=== PATIENT | female | born 1995 | race Caucasian/White ===

== ENCOUNTER 2017-01-05 16:16 | Emergency (ER) | payer MEDICAID ==
[2017-01-05 16:28] VITALS: BP 132/59
[2017-01-05] MEDS ORDERED: methylPREDNISolone Sodium Succinate 125 MG/2 ML SDV IM ONE (17:06)
--- NOTE | 2017-01-05 17:12 | EDM.PDOC ---
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 She did feel anxious and was not sure if it was the reaction or if she was just panicky. She did not develop hives. Onset: Today Duration: Minutes: Location: Reports: Chest Associated Symptoms: Reports: Shortness of Breath, Other (pt was feeling sob amd tight in the throat. ) - Related Data Allergies Allergy/AdvReac Type Severity Reaction Status Date / Time amoxicillin Allergy Hives Verified 08/18/16 19:21 Home Meds: Home Meds Acetaminophen [Tylenol Extra Strength] 500 mg PO ASDIRECTED 08/18/16 [History] Albuterol [Ventolin HFA] 2 puff INH ASDIRECTED 08/18/16 [History] Doxylamine Succinate [Unisom] 12.5 mg PO BEDTIME 08/18/16 [History] Montelukast [Singulair] 10 mg PO BEDTIME 08/18/16 [History] Vits #93/Iron Fum/FA [ Formula Tablet] 1 tab PO DAILY 08/18/16 [History] Past Medical History HEENT History: Reports: Allergic Rhinitis, Impaired Vision 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: Reports: Asthma Musculoskeletal History: Reports: Fracture Psychiatric History: Reports: Anxiety, Panic Attack Hematologic History: Reports: Other (See Below) Other Hematologic History: low WBC with onknown cause - Infectious Disease History Infectious Disease History: Reports: Chicken Pox - Past Surgical History HEENT Surgical History: Reports: None Social & Family History - Tobacco Use Smoking Status *Q: Never Smoker Years of Tobacco use: 1 Packs/Tins Daily: 1 Used Tobacco, but Quit: Yes Month Tobacco Last Used: Febuary - Caffeine Use Caffeine Use: Reports: None - Recreational Drug Use Recreational Drug Use: No Recreational Drug Type: Reports: Marijuana/Hashish ED ROS GENERAL - Review of Systems Review Of Systems: See Below Constitutional: Reports: No Symptoms HEENT: Reports: No Symptoms Respiratory: Reports: Shortness of Breath Cardiovascular: Reports: No Symptoms Endocrine: Reports: No Symptoms GI/Abdominal: Reports: No Symptoms : Reports: No Symptoms ED EXAM, ANIMAL BITE - Physical Exam Exam: See Below Text/Narrative:: pt does appear anxious. She is 6.5 monthes preg. She has no hives. She as a small bite with no reaction around it. Exam Limited By: No Limitations General Appearance: Alert, Anxious Ears: Normal TMs Nose: Normal Inspection Throat/Mouth: Normal Inspection, Other ( no swelling ) Head: Atraumatic Neck: Normal Inspection Respiratory/Chest: Other ( no wheezing present. ) Cardiovascular: Regular Rate, Rhythm GI/Abdominal: Soft, Non-Tender (Female) Exam: Deferred Rectal (Female) Exam: Deferred Back Exam: Normal Inspection Extremities: Normal Inspection Neurological: Alert, Oriented, Normal Cognition Psychiatric: Anxious Course - Vital Signs Last Recorded V/S: Last Vital Signs Temp 36.6 C 01/05/17 16:25 Pulse 94 01/05/17 16:25 Resp 20 01/05/17 16:25 BP 132/59 L 01/05/17 16:25 Pulse Ox 98 01/05/17 16:25 - Orders/Labs/Meds Orders: Active Orders 24 hr Category Date Time Status methylPREDNISolone Sod Succ [Solu-MEDROL] Med 01/05/17 17:06 Once 125 mg IM ONETIME ONE - Re-Assessments/Exams Free Text/Narrative Re-Assessment/Exam: 01/05/17 17:12 pt was not given benadryl because of the preg. Departure - Departure Time of Disposition: 17:13 Disposition: Home, Self-Care 01 Condition: fair Clinical Impression: Bee sting reaction - Discharge Information Forms: ED Department Discharge Care Plan Goals: use tylenol for any discomfort, rtc if problems. - My Orders Last 24 Hours: My Active Orders 01/05/17 17:06 methylPREDNISolone Sod Succ [Solu-MEDROL] 125 mg IM ONETIME ONE - Assessment/Plan Last 24 Hours: My Active Orders 01/05/17 17:06 methylPREDNISolone Sod Succ [Solu-MEDROL] 125 mg IM ONETIME ONE
== END 2017-01-05 17:40 | disposition home or self-care (01) ==
LOC: JP.ED 16:16
DX: T63.441A Toxic effect of venom of bees, accidental (unintentional), initial encounter (principal); Z88.1 Allergy status to other antibiotic agents; Z79.899 Other long term (current) drug therapy; J45.909 Unspecified asthma, uncomplicated
CPT/HCPCS: 96372; 99285; J2930

== ENCOUNTER 2017-04-13 18:56 | Inpatient (IN) | payer MEDICAID ==
[~2017-04-13 18:56] MED LIST: Lidocaine 1% 50 ML MDV INJECT ONE
[2017-04-13] MEDS ORDERED: Sodium Chloride 0.9% 10 ML Syringe FLUSH PRN ×2 (19:30→19:48)
[2017-04-13] MEDS ORDERED: Acetaminophen 325 MG Tab PO PRN (19:48)
[2017-04-13] MEDS ORDERED: Calcium Carbonate 500 MG Tab.Chew PO PRN (19:48)
[2017-04-13] MEDS ORDERED: Ondansetron 4 MG/2 ML SDV IV PRN (19:48)
[2017-04-13] MEDS ORDERED: Misoprostol 50 MCG (1/2 of 100 MCG) Tab VAG ONE (19:52)
[2017-04-13] MEDS ORDERED: Zolpidem 5 MG Tab PO ONE (19:53)
[2017-04-13] MEDS ORDERED: Lactated Ringers 1,000 ML IV SCH (20:00)
--- NOTE | 2017-04-13 20:30 | PCM.LDHP ---
L&D History of Present Illness - General Date of Service: 04/13/17 Admit Problem/Dx: Patient Status Order with Admit Dx/Problem 04/13/17 19:48 Patient Status [ADT] Routine Admission Diagnosis/Problem Admission Diagnosis/Problem - Related Data Allergies/Adverse Reactions: Allergies Allergy/AdvReac Type Severity Reaction Status Date / Time amoxicillin Allergy Hives Verified 08/18/16 19:21 Home Medications: Home Meds Acetaminophen [Tylenol Extra Strength] 500 mg PO ASDIRECTED 08/18/16 [History] Albuterol [Ventolin HFA] 2 puff INH ASDIRECTED 08/18/16 [History] Doxylamine Succinate [Unisom] 12.5 mg PO BEDTIME 08/18/16 [History] Montelukast [Singulair] 10 mg PO BEDTIME 08/18/16 [History] Vits #93/Iron Fum/FA [ Formula Tablet] 1 tab PO DAILY 08/18/16 [History] Past Medical History HEENT History: Reports: Allergic Rhinitis 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: Reports: 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 Other OB/BYN History: BOO-04/08/2017 Musculoskeletal History: Reports: Fracture Other Musculoskeletal History: fractured shoulder x's 3 Psychiatric History: Reports: Anxiety, Panic Attack Hematologic History: Reports: Other (See Below) Other Hematologic History: low WBC with unknown cause Dermatologic History: Reports: Other (See Below) Other Dermatologic History: PUPP - Infectious Disease History Infectious Disease History: Reports: Chicken Pox - Past Surgical History HEENT Surgical History: Reports: None Respiratory Surgical History: Reports: None Musculoskeletal Surgical History: Reports: None Social & Family History - Family History Family Medical History: Noncontributory - Tobacco Use Smoking Status *Q: Never Smoker Years of Tobacco use: 1 Packs/Tins Daily: 1 Used Tobacco, but Quit: Yes Month Tobacco Last Used: Febuary Second Hand Smoke Exposure: Yes - Caffeine Use Caffeine Use: Reports: Soda Other Caffeine Use: 1 cup daily - Recreational Drug Use Recreational Drug Use: No Recreational Drug Type: Reports: Marijuana/Hashish H&P Review of Systems - Review of Systems: Review Of Systems: See Below General: Reports: No Symptoms HEENT: Reports: No Symptoms Pulmonary: Reports: No Symptoms Cardiovascular: Reports: No Symptoms Gastrointestinal: Reports: No Symptoms Genitourinary: Reports: No Symptoms Musculoskeletal: Reports: No Symptoms Skin: Reports: Rash, Other (PUPP) Psychiatric: Reports: No Symptoms Neurological: Reports: No Symptoms Hematologic/Lymphatic: Reports: No Symptoms Immunologic: Reports: No Symptoms L&D Exam - Exam Exam: See Below - Vital Signs Weight: 73.936 kg - OB Specific Movement: Active Heart Tones: Present Heart Rate (FHR) Variability: Moderate (6-25 bmp) Presentation: Vertex - Chaves Score Chaves Score Cervix Position: Posterior Chaves Score Consistency: Soft Chaves Score Effacement: 51-70% Chaves Score Dilation: Closed Chaves Score Infant's Station: -1 ,0 Chaves Score Total: 6 - Exam General: Alert, Oriented HEENT: PERRLA, Conjunctiva Clear, EACs Clear, EOMI, Hearing Intact, Mucosa Moist & Ericson, Nares Patent, Normal Nasal Septum, Posterior Pharynx Clear, TMs Clear Neck: Supple, Trachea Midline Lungs: Clear to Auscultation, Normal Respiratory Effort Cardiovascular: Regular Rate, Regular Rhythm GI/Abdominal Exam: Normal Bowel Sounds, Soft, Non-Tender, No Organomegaly, No Distention, No Abnormal Bruit, No Mass, Pelvis Stable Rectal Exam: Normal Exam, Normal Rectal Tone Genitourinary: Normal external exam, Normal bimanual exam, Normal speculum exam Back Exam: Normal Inspection, Full Range of Motion Extremities: Normal Inspection, Normal Range of Motion, Non-Tender, No Pedal Edema, Normal Capillary Refill Skin: Warm, Dry, Intact, Rash, Other (PUPP on most of abdomen and body) Neurological: Cranial Nerves Intact, Reflexes Equal Bilateral Psychiatric: Alert, Normal Affect, Normal Mood - Patient Data Lab Results Last 24 hrs: Laboratory Results - last 24 hr 04/13/17 04/13/17 04/13/17 Range/Units 19:42 19:42 19:42 WBC 11.6 H (4.5-11.0) K/uL RBC 4.71 (3.30-5.50) M/uL Hgb 13.9 (12.0-15.0) g/dL Hct 41.2 (36.0-48.0) % MCV 88 (80-98) fL MCH 30 (27-31) pg MCHC 34 (32-36) % Plt Count 227 (150-400) K/uL Neut % (Auto) 66 (36-66) % Lymph % (Auto) 22 L (24-44) % Navarro % (Auto) 8 H (2-6) % Eos % (Auto) 3 (2-4) % Baso % (Auto) 1 (0-1) % Sodium 138 L (140-148) mmol/L Potassium 3.6 (3.6-5.2) mmol/L Chloride 104 (100-108) mmol/L Carbon Dioxide 24 (21-32) mmol/L Anion Gap 13.6 (5.0-14.0) mmol/L BUN 10 (7-18) mg/dL Creatinine 0.7 (0.6-1.0) mg/dL Est Cr Clr Drug Dosing 100.51 mL/min Estimated GFR (MDRD) > 60 (>60) Glucose 83 (74-106) mg/dL Uric Acid 5.2 (2.6-6.2) mg/dL Calcium 8.6 (8.5-10.1) mg/dL Total Bilirubin 0.2 (0.2-1.0) mg/dL AST 19 (15-37) U/L ALT 20 (12-78) U/L Alkaline Phosphatase 170 H (46-116) U/L Total Protein 6.9 (6.4-8.2) g/dL Albumin 2.7 L (3.4-5.0) g/dL Globulin 4.2 H (2.3-3.5) g/dL Albumin/Globulin Ratio 0.6 L (1.2-2.2) Urine Color Urine Appearance Urine pH (4.5-8.0) Ur Specific Ponce (1.008-1.030) Urine Protein (NEGATIVE) mg/dL Urine Glucose (UA) (NEGATIVE) mg/dL Urine Ketones (NEGATIVE) mg/dL Urine Occult Blood (NEGATIVE) Urine Nitrite (NEGATIVE) Urine Bilirubin (NEGATIVE) Urine Urobilinogen (NORMAL) mg/dL Ur Leukocyte Esterase (NEGATIVE) Urine RBC (0-5) Urine WBC (0-5) Ur Epithelial Cells Amorphous Sediment Urine Bacteria Urine Mucus Urine Opiates Screen (NEGATIVE) Ur Oxycodone Screen (NEGATIVE) Urine Methadone Screen (NEGATIVE) Ur Propoxyphene Screen (NEGATIVE) Ur Barbiturates Screen (NEGATIVE) Ur Tricyclics Screen (NEGATIVE) Ur Phencyclidine Scrn (NEGATIVE) Ur Amphetamine Screen (NEGATIVE) U Methamphetamines Scrn (NEGATIVE) Urine MDMA Screen (NEGATIVE) U Benzodiazepines Scrn (NEGATIVE) U Cocaine Metab Screen (NEGATIVE) U Marijuana (THC) Screen (NEGATIVE) 04/13/17 04/13/17 Range/Units 19:54 19:54 WBC (4.5-11.0) K/uL RBC (3.30-5.50) M/uL Hgb (12.0-15.0) g/dL Hct (36.0-48.0) % MCV (80-98) fL MCH (27-31) pg MCHC (32-36) % Plt Count (150-400) K/uL Neut % (Auto) (36-66) % Lymph % (Auto) (24-44) % Navarro % (Auto) (2-6) % Eos % (Auto) (2-4) % Baso % (Auto) (0-1) % Sodium (140-148) mmol/L Potassium (3.6-5.2) mmol/L Chloride (100-108) mmol/L Carbon Dioxide (21-32) mmol/L Anion Gap (5.0-14.0) mmol/L BUN (7-18) mg/dL Creatinine (0.6-1.0) mg/dL Est Cr Clr Drug Dosing mL/min Estimated GFR (MDRD) (>60) Glucose (74-106) mg/dL Uric Acid (2.6-6.2) mg/dL Calcium (8.5-10.1) mg/dL Total Bilirubin (0.2-1.0) mg/dL AST (15-37) U/L ALT (12-78) U/L Alkaline Phosphatase (46-116) U/L Total Protein (6.4-8.2) g/dL Albumin (3.4-5.0) g/dL Globulin (2.3-3.5) g/dL Albumin/Globulin Ratio (1.2-2.2) Urine Color Yellow Urine Appearance Clear Urine pH 7.0 (4.5-8.0) Ur Specific Ponce 1.010 (1.008-1.030) Urine Protein Negative (NEGATIVE) mg/dL Urine Glucose (UA) Normal (NEGATIVE) mg/dL Urine Ketones Negative (NEGATIVE) mg/dL Urine Occult Blood Negative (NEGATIVE) Urine Nitrite Negative (NEGATIVE) Urine Bilirubin Negative (NEGATIVE) Urine Urobilinogen Normal (NORMAL) mg/dL Ur Leukocyte Esterase Negative (NEGATIVE) Urine RBC 0-5 (0-5) Urine WBC 5-10 H (0-5) Ur Epithelial Cells Few Amorphous Sediment Not seen Urine Bacteria Moderate Urine Mucus Not seen Urine Opiates Screen Negative (NEGATIVE) Ur Oxycodone Screen Negative (NEGATIVE) Urine Methadone Screen Negative (NEGATIVE) Ur Propoxyphene Screen Negative (NEGATIVE) Ur Barbiturates Screen Negative (NEGATIVE) Ur Tricyclics Screen Negative (NEGATIVE) Ur Phencyclidine Scrn Negative (NEGATIVE) Ur Amphetamine Screen Negative (NEGATIVE) U Methamphetamines Scrn Negative (NEGATIVE) Urine MDMA Screen Negative (NEGATIVE) U Benzodiazepines Scrn Negative (NEGATIVE) U Cocaine Metab Screen Negative (NEGATIVE) U Marijuana (THC) Screen Negative (NEGATIVE) Result Diagrams: 04/13/17 19:42 04/13/17 19:42 - Problem List (1) SNOMED Code(s): 76933374 ICD Code: Z34.90 - ENCNTR FOR SUPRVSN OF NORMAL , UNSP, UNSP TRIMESTER Status: Acute Current Visit: Yes Qualifiers: Weeks of gestation: 40 weeks Qualified Code(s): Z3A.40 - 40 weeks gestation of (2) Post-dates SNOMED Code(s): 80912091 ICD Code: O48.0 - POST-TERM Status: Acute Current Visit: Yes Qualifiers: Post-term type: 40-42 weeks gestation Qualified Code(s): O48.0 - Post-term (3) PUPP (pruritic urticarial papules and plaques of ) SNOMED Code(s): 43421466 ICD Code: O26.86 - PRURITIC URTICARIAL PAPULES AND PLAQUES OF ( PUPPP) Status: Acute Current Visit: Yes Problem List Initiated/Reviewed/Updated: Yes Orders Last 24hrs: Active Orders 24 hr Category Date Time Status Patient Status [ADT] Routine ADT 04/13/17 19:48 Ordered Ambulate [RC] PER UNIT ROUTINE Care 04/13/17 19:48 Ordered Communication Order [RC] ASDIRECTED Care 04/13/17 19:48 Ordered Heart Tones [RC] PER UNIT ROUTINE Care 04/13/17 19:48 Ordered Notify Provider Vital Signs [RC] PRN Care 04/13/17 19:48 Ordered Notify Provider [RC] PRN Care 04/13/17 19:48 Ordered Up ad Kenneth [RC] ASDIRECTED Care 04/13/17 19:48 Ordered VTE/DVT Education [RC] Click to Edit Care 04/13/17 19:50 Ordered Vital Signs [RC] PER UNIT ROUTINE Care 04/13/17 19:48 Ordered Regular Diet [DIET] Diet 04/13/17 Dinner Ordered Acetaminophen [Tylenol] Med 04/13/17 19:48 Ordered 650 mg PO Q4H PRN Calcium Carbonate [Tums] Med 04/13/17 19:48 Ordered 1,000 mg PO Q2HR PRN Lactated Ringers [Ringers, Lactated] 1,000 ml Med 04/13/17 20:00 Ordered IV ASDIRECTED Ondansetron [Zofran] Med 04/13/17 19:48 Ordered 4 mg IV Q4H PRN Sodium Chloride 0.9% [Saline Flush] Med 04/13/17 19:30 Active 10 ml FLUSH ASDIRECTED PRN Sodium Chloride 0.9% [Saline Flush] Med 04/13/17 19:48 Ordered 10 ml FLUSH ASDIRECTED PRN fentaNYL [Sublimaze] Med 04/13/17 19:48 Ordered 100 mcg IVPUSH Q1H PRN DVT/VTE Prophylaxis Reflex [OM.PC] Routine Oth 04/13/17 19:48 Ordered Saline Lock Insert [OM.PC] Routine Oth 04/13/17 19:30 Ordered Saline Lock Insert [OM.PC] Routine Oth 04/13/17 19:48 Ordered Resuscitation Status Routine Resus Stat 04/13/17 19:48 Ordered Medication Orders Acetaminophen (Tylenol) 650 mg PO Q4H PRN PRN Reason: Pain (Mild 1-3) and fever Calcium Carbonate/Glycine (Tums) 1,000 mg PO Q2H PRN PRN Reason: Indigestion Fentanyl (Sublimaze) 100 mcg IVPUSH Q1H PRN PRN Reason: Pain (moderate 4-6) Lactated Ringer's (Ringers, Lactated) 1,000 mls @ 125 mls/hr IV ASDIRECTED DIANNE Ondansetron HCl (Zofran) 4 mg IV Q4H PRN PRN Reason: Nausea/Vomiting Sodium Chloride (Saline Flush) 10 ml FLUSH ASDIRECTED PRN PRN Reason: Keep Vein Open Sodium Chloride (Saline Flush) 10 ml FLUSH ASDIRECTED PRN PRN Reason: Keep Vein Open Assessment/Plan Comment:: 04/13/2017 22 yo here at 40 5/7 gestational weeks for an elective induction of labor SVE-0/75/-1--2 Bishops Score-6 Cytotec 50mcg placed FHTs category one PUPP rash Currently not johnathon on her own Plan- Monitor for active labor Monitor FHTs for cytotec protocol then can doppler intermittently when patient is awake or with vital signs Up ad kenneth Ambien 10mg for sleep Can give benadryl 25-50mg for itching if needed Pain Management per patient request Can give IV bolus of LR if needed Vital Signs per protocol of cytotec Can eat regular diet Have patient up around 0600 for shower and breakfast before initiation of pitocin or another dose of cytotec to be placed Anticipate and plan for a vaginal delivery
[2017-04-13] MEDS ORDERED: Albuterol 8 GM Inhaler INH PRN (20:35)
[2017-04-13] MEDS ORDERED: Zolpidem 5 MG Tab ONE (22:14)
[2017-04-13] MEDS: diphenhydrAMINE 25 MG Cap PO PRN (23:50)
[2017-04-14] MEDS: fentaNYL 100 MCG/2 ML SDV IVPUSH PRN ×2 (01:02→02:32)
[2017-04-14] MEDS ORDERED: Naloxone 0.4 MG/ML SDV ONE (01:54)
[2017-04-14] MEDS ORDERED: Mineral Oil 10 ML Bottle ONE (01:54)
[2017-04-14] MEDS ORDERED: Lidocaine 1% 50 ML MDV ONE (01:54)
[2017-04-14] MEDS ORDERED: Oxytocin 10 Units/1 ML SDV ONE (01:54)
[2017-04-14] MEDS ORDERED: Lanolin 100% Cream 40 GM Tube TOP PRN (03:32)
[2017-04-14] MEDS ORDERED: Ibuprofen 200 MG Tab, 24 Tab Bulk Bottle PO PRN (03:32)
[2017-04-14] MEDS ORDERED: Acetaminophen 325 MG Tab, 50 Tab Bulk Bottle PO PRN (03:32)
[2017-04-14] MEDS ORDERED: Benzocaine 20% Top Spray 56 GM Bottle TOP PRN (03:32)
[2017-04-14] MEDS ORDERED: Ibuprofen 600 MG Tab PO PRN (03:32)
[2017-04-14] MEDS ORDERED: Witch Hazel Medicated Pads 100/Jar TOP PRN (03:32)
--- NOTE | 2017-04-14 03:51 | PCM.DEL ---
L & D Note - General Info Date of Service: 04/14/17 Mother's Due Date: 04/08/17 - Delivery Note Cervical Ripening Method: Misoprostil Delivery Outcome: Livebirth Delivery Method: Spontaneous Vaginal Delivery Infant Delivery Mode: Spontaneous Presentation: Left Occiput Transverse (LOT) Nuchal Cord: Present (tight and clamped and cut on perineum) Anesthesia Type: None Anesthetic: Lidocaine (Xylocaine) 1% Plain Local Anesthetic Volume: Other (12) Amniotic Fluid Description: Clear Laceration: Labial (deep labial minor and majora), Other (small perineal abrasion) Suture type: Chromic Suture size: 3-0 Placenta: Intact, Spontaneous Cord: 3 Vessels Estimated Blood Loss: 500 Resuscitation Needed: No : Bulb Syringe, Stimulated, Warmed, [place] Used, Warmer Used Score 1 min: 8 Score 5 min: 9 Score 10 min: 9 Post Delivery Events: Shoulder Dystocia Second Stage Interventions: Reports: Encouragement Given, Pushing Effectively, Pushing, McRobert's Position, Pushing, Stirrups/Leg Supports, Other (see below) (suprapubic used) Delivery Comments (Free Text/Narrative):: 04/14/2017 22 yo G1 now P1 at 40 6/7 gestation weeks delivered a viable male on 03/2017 at 0213 in LOT position, after a precipitous labor and delivery after one dose of vaginal cytotec earlier in the evening. Moderate shoulder dystocia that was relieved with suprapubic pressure and McRobert maneuver. Tight nuchal cord times one also had to be clamped and cut on the perineum. APGARS-8/9/9, Weight- 7lbs 13.5oz, Length-21 inches- infant was brought to [facility] for initial assessment and evaluation, bulb suction, stimulated, dried, and warmed before pinking in color. Placenta spontaneous, three vessel cord Perineum had small abrasion repaired in usual fashion, large deep right labial minora and majora laceration repaired in usual fashion, no lacerations noted of cervix, vagina, or rectum on examination. EBL-500ml now skin to skin with mother and both stable at this time. - General Info Date of Service: 04/14/17 - Review of Systems General: Reports: No Symptoms HEENT: Reports: No Symptoms Pulmonary: Reports: No Symptoms Cardiovascular: Reports: No Symptoms Gastrointestinal: Reports: No Symptoms Genitourinary: Reports: No Symptoms Musculoskeletal: Reports: No Symptoms Skin: Reports: Rash (PUPP) Neurological: Reports: No Symptoms Psychiatric: Reports: No Symptoms - Patient Data Vitals - Most Recent: Last Vital Signs Temp 36.6 C 04/13/17 21:12 Pulse 78 04/13/17 22:32 Resp 18 04/13/17 22:32 BP 124/76 04/13/17 22:32 Pulse Ox Weight - Most Recent: 73.936 kg Lab Results Last 24 Hours: Laboratory Results - last 24 hr 04/13/17 04/13/17 04/13/17 Range/Units 19:42 19:42 19:42 WBC 11.6 H (4.5-11.0) K/uL RBC 4.71 (3.30-5.50) M/uL Hgb 13.9 (12.0-15.0) g/dL Hct 41.2 (36.0-48.0) % MCV 88 (80-98) fL MCH 30 (27-31) pg MCHC 34 (32-36) % Plt Count 227 (150-400) K/uL Neut % (Auto) 66 (36-66) % Lymph % (Auto) 22 L (24-44) % [place] % (Auto) 8 H (2-6) % Eos % (Auto) 3 (2-4) % Baso % (Auto) 1 (0-1) % Sodium 138 L (140-148) mmol/L Potassium 3.6 (3.6-5.2) mmol/L Chloride 104 (100-108) mmol/L Carbon Dioxide 24 (21-32) mmol/L Anion Gap 13.6 (5.0-14.0) mmol/L BUN 10 (7-18) mg/dL Creatinine 0.7 (0.6-1.0) mg/dL Est Cr Clr Drug Dosing 100.51 mL/min Estimated GFR (MDRD) > 60 (>60) Glucose 83 (74-106) mg/dL Uric Acid 5.2 (2.6-6.2) mg/dL Calcium 8.6 (8.5-10.1) mg/dL Total Bilirubin 0.2 (0.2-1.0) mg/dL AST 19 (15-37) U/L ALT 20 (12-78) U/L Alkaline Phosphatase 170 H (46-116) U/L Total Protein 6.9 (6.4-8.2) g/dL Albumin 2.7 L (3.4-5.0) g/dL Globulin 4.2 H (2.3-3.5) g/dL Albumin/Globulin Ratio 0.6 L (1.2-2.2) Urine Color Urine Appearance Urine pH (4.5-8.0) Ur Specific Stokes (1.008-1.030) Urine Protein (NEGATIVE) mg/dL Urine Glucose (UA) (NEGATIVE) mg/dL Urine Ketones (NEGATIVE) mg/dL Urine Occult Blood (NEGATIVE) Urine Nitrite (NEGATIVE) Urine Bilirubin (NEGATIVE) Urine Urobilinogen (NORMAL) mg/dL Ur Leukocyte Esterase (NEGATIVE) Urine RBC (0-5) Urine WBC (0-5) Ur Epithelial Cells Amorphous Sediment Urine Bacteria Urine Mucus Urine Opiates Screen (NEGATIVE) Ur Oxycodone Screen (NEGATIVE) Urine Methadone Screen (NEGATIVE) Ur Propoxyphene Screen (NEGATIVE) Ur Barbiturates Screen (NEGATIVE) Ur Tricyclics Screen (NEGATIVE) Ur Phencyclidine Scrn (NEGATIVE) Ur Amphetamine Screen (NEGATIVE) U Methamphetamines Scrn (NEGATIVE) Urine MDMA Screen (NEGATIVE) U Benzodiazepines Scrn (NEGATIVE) U Cocaine Metab Screen (NEGATIVE) U Marijuana (THC) Screen (NEGATIVE) 04/13/17 04/13/17 Range/Units 19:54 19:54 WBC (4.5-11.0) K/uL RBC (3.30-5.50) M/uL Hgb (12.0-15.0) g/dL Hct (36.0-48.0) % MCV (80-98) fL MCH (27-31) pg MCHC (32-36) % Plt Count (150-400) K/uL Neut % (Auto) (36-66) % Lymph % (Auto) (24-44) % [place] % (Auto) (2-6) % Eos % (Auto) (2-4) % Baso % (Auto) (0-1) % Sodium (140-148) mmol/L Potassium (3.6-5.2) mmol/L Chloride (100-108) mmol/L Carbon Dioxide (21-32) mmol/L Anion Gap (5.0-14.0) mmol/L BUN (7-18) mg/dL Creatinine (0.6-1.0) mg/dL Est Cr Clr Drug Dosing mL/min Estimated GFR (MDRD) (>60) Glucose (74-106) mg/dL Uric Acid (2.6-6.2) mg/dL Calcium (8.5-10.1) mg/dL Total Bilirubin (0.2-1.0) mg/dL AST (15-37) U/L ALT (12-78) U/L Alkaline Phosphatase (46-116) U/L Total Protein (6.4-8.2) g/dL Albumin (3.4-5.0) g/dL Globulin (2.3-3.5) g/dL Albumin/Globulin Ratio (1.2-2.2) Urine Color Yellow Urine Appearance Clear Urine pH 7.0 (4.5-8.0) Ur Specific Stokes 1.010 (1.008-1.030) Urine Protein Negative (NEGATIVE) mg/dL Urine Glucose (UA) Normal (NEGATIVE) mg/dL Urine Ketones Negative (NEGATIVE) mg/dL Urine Occult Blood Negative (NEGATIVE) Urine Nitrite Negative (NEGATIVE) Urine Bilirubin Negative (NEGATIVE) Urine Urobilinogen Normal (NORMAL) mg/dL Ur Leukocyte Esterase Negative (NEGATIVE) Urine RBC 0-5 (0-5) Urine WBC 5-10 H (0-5) Ur Epithelial Cells Few Amorphous Sediment Not seen Urine Bacteria Moderate Urine Mucus Not seen Urine Opiates Screen Negative (NEGATIVE) Ur Oxycodone Screen Negative (NEGATIVE) Urine Methadone Screen Negative (NEGATIVE) Ur Propoxyphene Screen Negative (NEGATIVE) Ur Barbiturates Screen Negative (NEGATIVE) Ur Tricyclics Screen Negative (NEGATIVE) Ur Phencyclidine Scrn Negative (NEGATIVE) Ur Amphetamine Screen Negative (NEGATIVE) U Methamphetamines Scrn Negative (NEGATIVE) Urine MDMA Screen Negative (NEGATIVE) U Benzodiazepines Scrn Negative (NEGATIVE) U Cocaine Metab Screen Negative (NEGATIVE) U Marijuana (THC) Screen Negative (NEGATIVE) Med Orders - Current: Current Medications Acetaminophen (Tylenol) 650 mg PO Q4H PRN PRN Reason: Pain (Mild 1-3) and fever Acetaminophen (Tylenol Bulk Bottle) 325 mg PO Q4H PRN PRN Reason: Pain Hydrocodone Bitart/Acetaminophen ([place] 325-5 Mg) 1 - 2 tab PO Q4H PRN PRN Reason: Pain (moderate 4-6) Albuterol (Ventolin Hfa) 8 gm INH Q2H PRN PRN Reason: Shortness of Breath Benzocaine (Hcdf-R-Uuqomno 20% [place]) 0 gm TOP Q4H PRN PRN Reason: Perineal Comfort Measure Calcium Carbonate/Glycine (Tums) 1,000 mg PO Q2H PRN PRN Reason: Indigestion Diphenhydramine HCl (Benadryl) 25 - 50 mg PO Q4H PRN PRN Reason: Itching Last Admin: 04/13/17 23:50 Dose: 25 mg Docusate Sodium (Colace) 100 mg PO BID PRN PRN Reason: Constipation Emollient Ointment (Lansinoh Hpa) 1 gm TOP ASDIRECTED PRN PRN Reason: Sore Nipples Fentanyl (Sublimaze) 100 mcg IVPUSH Q1H PRN PRN Reason: Pain (moderate 4-6) Last Admin: 04/14/17 02:32 Dose: 50 mcg Lactated Ringer's (Ringers, Lactated) 1,000 mls @ 125 mls/hr IV ASDIRECTED DIANNE Oxytocin/Sodium Chloride (Pitocin In Ns 20 Units/1,000 Ml) 20 unit in 1,000 mls @ 2,997 mls/hr IV ONETIME ONE; 999 MUNITS/MIN PRN Reason: Protocol Stop: 04/14/17 03:58 Ibuprofen (Motrin Bulk Bottle) 600 mg PO Q6H PRN PRN Reason: Pain Ibuprofen (Motrin) 600 mg PO Q6H PRN PRN Reason: mild pain or fever Ondansetron HCl (Zofran) 4 mg IV Q4H PRN PRN Reason: Nausea/Vomiting Prenat Multivit/[place]/Iron/Folic Ac ( Plus Iron) 1 each PO DAILY DIANNE Sodium Chloride (Saline Flush) 10 ml FLUSH ASDIRECTED PRN PRN Reason: Keep Vein Open Sodium Chloride (Saline Flush) 10 ml FLUSH ASDIRECTED PRN PRN Reason: Keep Vein Open Witch Christine (Tucks) 1 pad TOP ASDIRECTED PRN PRN Reason: Hemorrhoids Discontinued Medications Oxytocin/Sodium Chloride (Pitocin In Ns 20 Units/1,000 Ml) Confirm Administered Dose 20 unit in 1,000 mls @ as directed .ROUTE .STK-MED ONE Stop: 04/14/17 01:56 Last Admin: 04/14/17 02:15 Dose: 500 unit Lidocaine HCl (Xylocaine 1%) Confirm Administered Dose 100 ml .ROUTE .STK-MED ONE Stop: 04/14/17 01:55 Last Admin: 04/14/17 02:36 Dose: 50 ml Mineral Oil (Muri-Lube) Confirm Administered Dose 10 ml .ROUTE .STK-MED ONE Stop: 04/14/17 01:55 Misoprostol (Cytotec) 50 mcg VAG ONETIME ONE Stop: 04/13/17 19:53 Last Admin: 04/13/17 20:29 Dose: 50 mcg Naloxone HCl (Narcan) Confirm Administered Dose 0.4 mg .ROUTE .STK-MED ONE Stop: 04/14/17 01:55 Oxytocin (Pitocin) Confirm Administered Dose 10 unit .ROUTE .STK-MED ONE Stop: 04/14/17 01:55 Zolpidem Tartrate (Ambien) 10 mg PO ONETIME ONE Stop: 04/13/17 19:54 Last Admin: 04/13/17 22:15 Dose: 10 mg Zolpidem Tartrate (Ambien) Confirm Administered Dose 10 mg .ROUTE .STK-MED ONE Stop: 04/13/17 22:15 Last Admin: 04/13/17 22:10 Dose: 10 mg - Exam General: Alert, Oriented HEENT: Pupils Equal, Pupils Reactive, EOMI, Mucous Membr. Moist/[place] Neck: Supple Lungs: Clear to Auscultation, Normal Respiratory Effort Cardiovascular: Regular Rate, Regular Rhythm GI/Abdominal Exam: Normal Bowel Sounds, Soft, Non-Tender, No Organomegaly, No Distention, No Abnormal Bruit, No Mass, Pelvis Stable (Female) Exam: Normal External Exam, Normal Speculum Exam, Normal Bimanual Exam Back Exam: Normal Inspection, Full Range of Motion Extremities: Normal Inspection, Normal Range of Motion, Non-Tender, No Pedal Edema, Normal Capillary Refill Skin: Warm, Dry, Intact, Rash (PUPP) Wound/Incisions: Healing Well, Other (Swollen) Neurological: No New Focal Deficit Psy/Mental Status: Alert, Normal Affect, Normal Mood - Problem List & Annotations (1) SNOMED Code(s): 07313388 Code(s): Z34.90 - ENCNTR FOR SUPRVSN OF NORMAL , UNSP, UNSP TRIMESTER Status: Acute Current Visit: Yes Qualifiers: Weeks of gestation: 40 weeks Qualified Code(s): Z3A.40 - 40 weeks gestation of (2) Post-dates SNOMED Code(s): 72363694 Code(s): O48.0 - POST-TERM Status: Acute Current Visit: Yes Qualifiers: Post-term type: 40-42 weeks gestation Qualified Code(s): O48.0 - Post-term (3) PUPP (pruritic urticarial papules and plaques of ) SNOMED Code(s): 25177154 Code(s): O26.86 - PRURITIC URTICARIAL PAPULES AND PLAQUES OF (PUPPP ) Status: Acute Current Visit: Yes (4) Laceration of labia majora SNOMED Code(s): 622797717 Code(s): S31.41XA - LACERATION W/O FOREIGN BODY OF VAGINA AND VULVA, INIT ENCNTR Status: Acute Current Visit: Yes Qualifiers: Encounter type: initial encounter Qualified Code(s): S31.41XA - Laceration without foreign body of vagina and vulva, initial encounter (5) Laceration of labia minora SNOMED Code(s): 481680437 Code(s): S31.41XA - LACERATION W/O FOREIGN BODY OF VAGINA AND VULVA, INIT ENCNTR Status: Acute Current Visit: Yes Qualifiers: Encounter type: initial encounter Qualified Code(s): S31.41XA - Laceration without foreign body of vagina and vulva, initial encounter (6) Perineal laceration of labia SNOMED Code(s): 23380858 Code(s): S31.41XA - LACERATION W/O FOREIGN BODY OF VAGINA AND VULVA, INIT ENCNTR Status: Acute Current Visit: Yes Qualifiers: Encounter type: initial encounter Qualified Code(s): S31.41XA - Laceration without foreign body of vagina and vulva, initial encounter (7) Shoulder dystocia during labor and delivery SNOMED Code(s): 54012126 Code(s): O66.0 - OBSTRUCTED LABOR DUE TO SHOULDER DYSTOCIA Status: Acute Current Visit: Yes - Problem List Review Problem List Initiated/Reviewed/Updated: Yes - My Orders Last 24 Hours: My Active Orders 04/13/17 19:30 Sodium Chloride 0.9% [Saline Flush] 10 ml FLUSH ASDIRECTED PRN Saline Lock Insert [OM.PC] Routine 04/13/17 19:48 Patient Status [ADT] Routine Ambulate [RC] PER UNIT ROUTINE Communication Order [RC] ASDIRECTED Notify Provider Vital Signs [RC] PRN Notify Provider [RC] PRN Up ad Kenneth [RC] ASDIRECTED Vital Signs [RC] PER UNIT ROUTINE Acetaminophen [Tylenol] 650 mg PO Q4H PRN Calcium Carbonate [Tums] 1,000 mg PO Q2H PRN Ondansetron [Zofran] 4 mg IV Q4H PRN Sodium Chloride 0.9% [Saline Flush] 10 ml FLUSH ASDIRECTED PRN fentaNYL [Sublimaze] 100 mcg IVPUSH Q1H PRN DVT/VTE Prophylaxis Reflex [OM.PC] Routine Saline Lock Insert [OM.PC] Routine Resuscitation Status Routine 04/13/17 19:50 VTE/DVT Education [RC] Click to Edit 04/13/17 20:00 Lactated Ringers [Ringers, Lactated] 1,000 ml IV ASDIRECTED 04/13/17 20:31 diphenhydrAMINE [Benadryl] 25 - 50 mg PO Q4H PRN 04/13/17 20:35 Albuterol [Ventolin HFA] 8 gm INH Q2H PRN 04/13/17 20:37 RT Post Treatment Assessment [RC] Click to Edit 04/13/17 Dinner Regular Diet [DIET] 04/14/17 02:15 Patient Status [ADT] Routine 04/14/17 03:32 May Shower [RC] ASDIRECTED Vital Signs [RC] PFP Consult to Home Health [CONS] Routine Acetaminophen [Tylenol Bulk Bottle] 325 mg PO Q4H PRN Acetaminophen/HYDROcodone [[place] 325-5 MG] 1 - 2 tab PO Q4H PRN Benzocaine [Nesp-D-Zpuqbbv 20% [place]] See Dose Instructions TOP Q4H PRN Docusate Sodium [Colace] 100 mg PO BID PRN Ibuprofen [Motrin Bulk Bottle] 600 mg PO Q6H PRN Ibuprofen [Motrin] 600 mg PO Q6H PRN Lanolin [Lansinoh HPA] 1 gm TOP ASDIRECTED PRN Domenic Christine [Tucks] 1 pad TOP ASDIRECTED PRN Assess Lochia [WOMSER] Per Unit Routine Assess Uterine Involution [WOMSER] Per Unit Routine 04/14/17 03:34 Ice Therapy [OM.PC] Per Unit Routine Perineal Care [OM.PC] Per Unit Routine Sitz Bath [OM.PC] Per Unit Routine 04/14/17 03:38 Oxytocin/Normal Saline [Pitocin in NS 20 Units/1,000 ML] 20 unit in 1,000 ml IV ONETIME 04/14/17 09:00 Vit with Ca/FA/Iron [ Plus Iron] 1 each PO DAILY 04/15/17 06:00 CBC WITH AUTO DIFF [HEME] Routine - Assessment Assessment:: 04/14/2017 22 yo G1 now P1 at 40 6/7 weeks gestation with a with a moderate shoulder dystocia after a precipitous delivery/labor Deep labial minora and majora laceration on the right labial with repair Small perineal abrasion repaired Labs-GBS negative, O positive, RPR nonreactive, Hep B negative, HIV negative - Plan Plan:: 04/13/2017 22 yo here at 40 5/7 gestational weeks for an elective induction of labor SVE-0/75/-1--2 Bishops Score-6 Cytotec 50mcg placed FHTs category one PUPP rash Currently not [place] on her own Plan- Monitor for active labor Monitor FHTs for cytotec protocol then can doppler intermittently when patient is awake or with vital signs Up ad kenneth Ambien 10mg for sleep Can give benadryl 25-50mg for itching if needed Pain Management per patient request Can give IV bolus of LR if needed Vital Signs per protocol of cytotec Can eat regular diet Have patient up around 0600 for shower and breakfast before initiation of pitocin or another dose of cytotec to be placed Anticipate and plan for a vaginal delivery 04/14/2017 Routine Cares Encourage and support Encourage good perineal care and ice, tucks, dermaplast, and sitz bath Start stool softener BID Home care referral Plan discharge in 24-48 hours
[2017-04-14] MEDS: Acetaminophen/HYDROcodone 325-5 MG Tab PO PRN ×4 (05:34→20:42)
--- NOTE | 2017-04-14 08:51 | PCM.PNPP ---
- General Info Date of Service: 04/14/17 - Review of Systems General: Reports: No Symptoms HEENT: Reports: No Symptoms Pulmonary: Reports: No Symptoms Cardiovascular: Reports: No Symptoms Gastrointestinal: Reports: No Symptoms Genitourinary: Reports: No Symptoms Musculoskeletal: Reports: No Symptoms Skin: Reports: No Symptoms Neurological: Reports: No Symptoms Psychiatric: Reports: No Symptoms - General Info Date of Service: 04/14/17 - Patient Data Vital Signs - Most Recent: Last Vital Signs Temp 35.9 C 04/14/17 08:16 Pulse 90 04/14/17 08:24 Resp 16 04/14/17 08:16 BP 118/48 L 04/14/17 08:16 Pulse Ox 97 04/14/17 08:16 Weight - Most Recent: 73.936 kg Lab Results - Last 24 Hours: Laboratory Results - last 24 hr 04/13/17 04/13/17 04/13/17 Range/Units 19:42 19:42 19:42 WBC 11.6 H (4.5-11.0) K/uL RBC 4.71 (3.30-5.50) M/uL Hgb 13.9 (12.0-15.0) g/dL Hct 41.2 (36.0-48.0) % MCV 88 (80-98) fL MCH 30 (27-31) pg MCHC 34 (32-36) % Plt Count 227 (150-400) K/uL Neut % (Auto) 66 (36-66) % Lymph % (Auto) 22 L (24-44) % [place] % (Auto) 8 H (2-6) % Eos % (Auto) 3 (2-4) % Baso % (Auto) 1 (0-1) % Sodium 138 L (140-148) mmol/L Potassium 3.6 (3.6-5.2) mmol/L Chloride 104 (100-108) mmol/L Carbon Dioxide 24 (21-32) mmol/L Anion Gap 13.6 (5.0-14.0) mmol/L BUN 10 (7-18) mg/dL Creatinine 0.7 (0.6-1.0) mg/dL Est Cr Clr Drug Dosing 100.51 mL/min Estimated GFR (MDRD) > 60 (>60) Glucose 83 (74-106) mg/dL Uric Acid 5.2 (2.6-6.2) mg/dL Calcium 8.6 (8.5-10.1) mg/dL Total Bilirubin 0.2 (0.2-1.0) mg/dL AST 19 (15-37) U/L ALT 20 (12-78) U/L Alkaline Phosphatase 170 H (46-116) U/L Total Protein 6.9 (6.4-8.2) g/dL Albumin 2.7 L (3.4-5.0) g/dL Globulin 4.2 H (2.3-3.5) g/dL Albumin/Globulin Ratio 0.6 L (1.2-2.2) Urine Color Urine Appearance Urine pH (4.5-8.0) Ur Specific [place] (1.008-1.030) Urine Protein (NEGATIVE) mg/dL Urine Glucose (UA) (NEGATIVE) mg/dL Urine Ketones (NEGATIVE) mg/dL Urine Occult Blood (NEGATIVE) Urine Nitrite (NEGATIVE) Urine Bilirubin (NEGATIVE) Urine Urobilinogen (NORMAL) mg/dL Ur Leukocyte Esterase (NEGATIVE) Urine RBC (0-5) Urine WBC (0-5) Ur Epithelial Cells Amorphous Sediment Urine Bacteria Urine Mucus Urine Opiates Screen (NEGATIVE) Ur Oxycodone Screen (NEGATIVE) Urine Methadone Screen (NEGATIVE) Ur Propoxyphene Screen (NEGATIVE) Ur Barbiturates Screen (NEGATIVE) Ur Tricyclics Screen (NEGATIVE) Ur Phencyclidine Scrn (NEGATIVE) Ur Amphetamine Screen (NEGATIVE) U Methamphetamines Scrn (NEGATIVE) Urine MDMA Screen (NEGATIVE) U Benzodiazepines Scrn (NEGATIVE) U Cocaine Metab Screen (NEGATIVE) U Marijuana (THC) Screen (NEGATIVE) 04/13/17 04/13/17 Range/Units 19:54 19:54 WBC (4.5-11.0) K/uL RBC (3.30-5.50) M/uL Hgb (12.0-15.0) g/dL Hct (36.0-48.0) % MCV (80-98) fL MCH (27-31) pg MCHC (32-36) % Plt Count (150-400) K/uL Neut % (Auto) (36-66) % Lymph % (Auto) (24-44) % [place] % (Auto) (2-6) % Eos % (Auto) (2-4) % Baso % (Auto) (0-1) % Sodium (140-148) mmol/L Potassium (3.6-5.2) mmol/L Chloride (100-108) mmol/L Carbon Dioxide (21-32) mmol/L Anion Gap (5.0-14.0) mmol/L BUN (7-18) mg/dL Creatinine (0.6-1.0) mg/dL Est Cr Clr Drug Dosing mL/min Estimated GFR (MDRD) (>60) Glucose (74-106) mg/dL Uric Acid (2.6-6.2) mg/dL Calcium (8.5-10.1) mg/dL Total Bilirubin (0.2-1.0) mg/dL AST (15-37) U/L ALT (12-78) U/L Alkaline Phosphatase (46-116) U/L Total Protein (6.4-8.2) g/dL Albumin (3.4-5.0) g/dL Globulin (2.3-3.5) g/dL Albumin/Globulin Ratio (1.2-2.2) Urine Color Yellow Urine Appearance Clear Urine pH 7.0 (4.5-8.0) Ur Specific [place] 1.010 (1.008-1.030) Urine Protein Negative (NEGATIVE) mg/dL Urine Glucose (UA) Normal (NEGATIVE) mg/dL Urine Ketones Negative (NEGATIVE) mg/dL Urine Occult Blood Negative (NEGATIVE) Urine Nitrite Negative (NEGATIVE) Urine Bilirubin Negative (NEGATIVE) Urine Urobilinogen Normal (NORMAL) mg/dL Ur Leukocyte Esterase Negative (NEGATIVE) Urine RBC 0-5 (0-5) Urine WBC 5-10 H (0-5) Ur Epithelial Cells Few Amorphous Sediment Not seen Urine Bacteria Moderate Urine Mucus Not seen Urine Opiates Screen Negative (NEGATIVE) Ur Oxycodone Screen Negative (NEGATIVE) Urine Methadone Screen Negative (NEGATIVE) Ur Propoxyphene Screen Negative (NEGATIVE) Ur Barbiturates Screen Negative (NEGATIVE) Ur Tricyclics Screen Negative (NEGATIVE) Ur Phencyclidine Scrn Negative (NEGATIVE) Ur Amphetamine Screen Negative (NEGATIVE) U Methamphetamines Scrn Negative (NEGATIVE) Urine MDMA Screen Negative (NEGATIVE) U Benzodiazepines Scrn Negative (NEGATIVE) U Cocaine Metab Screen Negative (NEGATIVE) U Marijuana (THC) Screen Negative (NEGATIVE) Med Orders - Current: Current Medications Acetaminophen (Tylenol Bulk Bottle) 325 mg PO Q4H PRN PRN Reason: Pain Hydrocodone Bitart/Acetaminophen ([place] 325-5 Mg) 1 - 2 tab PO Q4H PRN PRN Reason: Pain (moderate 4-6) Last Admin: 04/14/17 05:34 Dose: 2 tab Albuterol (Ventolin Hfa) 8 gm INH Q2H PRN PRN Reason: Shortness of Breath Benzocaine ([id number]-[id number] 20% [place]) 0 gm TOP Q4H PRN PRN Reason: Perineal Comfort Measure Last Admin: 04/14/17 05:34 Dose: 1 spray Calcium Carbonate/Glycine (Tums) 1,000 mg PO Q2H PRN PRN Reason: Indigestion Diphenhydramine HCl (Benadryl) 25 - 50 mg PO Q4H PRN PRN Reason: Itching Last Admin: 04/13/17 23:50 Dose: 25 mg Docusate Sodium (Colace) 100 mg PO BID PRN PRN Reason: Constipation Emollient Ointment (Lansinoh Hpa) 1 gm TOP ASDIRECTED PRN PRN Reason: Sore Nipples Last Admin: 04/14/17 05:35 Dose: 1 applic Lactated Ringer's (Ringers, Lactated) 1,000 mls @ 125 mls/hr IV ASDIRECTED DIANNE Ibuprofen (Motrin Bulk Bottle) 600 mg PO Q6H PRN PRN Reason: Pain Ondansetron HCl (Zofran) 4 mg IV Q4H PRN PRN Reason: Nausea/Vomiting Prenat Multivit/[place]/Iron/Folic Ac ( Plus Iron) 1 each PO DAILY DIANNE Sodium Chloride (Saline Flush) 10 ml FLUSH ASDIRECTED PRN PRN Reason: Keep Vein Open Witch Christine (Tucks) 1 pad TOP ASDIRECTED PRN PRN Reason: Hemorrhoids Last Admin: 04/14/17 05:33 Dose: 1 pad Discontinued Medications Acetaminophen (Tylenol) 650 mg PO Q4H PRN PRN Reason: Pain (Mild 1-3) and fever Fentanyl (Sublimaze) 100 mcg IVPUSH Q1H PRN PRN Reason: Pain (moderate 4-6) Last Admin: 04/14/17 02:32 Dose: 100 mcg Oxytocin/Sodium Chloride (Pitocin In Ns 20 Units/1,000 Ml) Confirm Administered Dose 20 unit in 1,000 mls @ as directed .ROUTE .STK-MED ONE Stop: 04/14/17 01:56 Last Admin: 04/14/17 02:15 Dose: 500 unit Oxytocin/Sodium Chloride (Pitocin In Ns 20 Units/1,000 Ml) 20 unit in 1,000 mls @ 2,997 mls/hr IV ONETIME ONE; 999 MUNITS/MIN PRN Reason: Protocol Stop: 04/14/17 03:58 Last Admin: 04/14/17 05:45 Dose: Not Given Ibuprofen (Motrin) 600 mg PO Q6H PRN PRN Reason: mild pain or fever Lidocaine HCl (Xylocaine 1%) Confirm Administered Dose 100 ml .ROUTE .STK-MED ONE Stop: 04/14/17 01:55 Last Admin: 04/14/17 02:36 Dose: 50 ml Lidocaine HCl (Xylocaine 1%) 0 ml INJECT ONETIME ONE Stop: 04/13/17 01:01 Mineral Oil (Muri-Lube) Confirm Administered Dose 10 ml .ROUTE .STK-MED ONE Stop: 04/14/17 01:55 Last Admin: 04/14/17 05:40 Dose: Not Given Misoprostol (Cytotec) 50 mcg VAG ONETIME ONE Stop: 04/13/17 19:53 Last Admin: 04/13/17 20:29 Dose: 50 mcg Naloxone HCl (Narcan) Confirm Administered Dose 0.4 mg .ROUTE .STK-MED ONE Stop: 04/14/17 01:55 Last Admin: 04/14/17 05:40 Dose: Not Given Oxytocin (Pitocin) Confirm Administered Dose 10 unit .ROUTE .STK-MED ONE Stop: 04/14/17 01:55 Last Admin: 04/14/17 05:40 Dose: Not Given Sodium Chloride (Saline Flush) 10 ml FLUSH ASDIRECTED PRN PRN Reason: Keep Vein Open Zolpidem Tartrate (Ambien) 10 mg PO ONETIME ONE Stop: 04/13/17 19:54 Last Admin: 04/13/17 22:15 Dose: 10 mg Zolpidem Tartrate (Ambien) Confirm Administered Dose 10 mg .ROUTE .STK-MED ONE Stop: 04/13/17 22:15 Last Admin: 04/13/17 22:10 Dose: 10 mg - Infant Interaction Infant Disposition, : at Bedside Interaction: Holding Infant Feeding: Attempted ; Nursed Fair/Poor, Encouraged to Breastfeed Support Person: Significant Other - Recovery Exam Fundal Tone: Firm Fundal Level: 1 Fingerbreadths Below Umbilicus Fundal Placement: Midline Lochia Amount: Moderate Lochia Color: Rubra/Red Perineum Description: Intact, Minimal Bruising/Swelling, Other (see below) ( internal digital exam shows no signs of hematoma) Episiotomy/Laceration: Approximated Bladder Status: Voiding Urinary Elimination: Voided - Exam General: Alert, Oriented HEENT: Pupils Equal Neck: Supple Lungs: Clear to Auscultation, Normal Respiratory Effort Cardiovascular: Regular Rate, Regular Rhythm GI/Abdominal Exam: Normal Bowel Sounds, Soft, Non-Tender, No Organomegaly, No Distention, No Abnormal Bruit, No Mass, Pelvis Stable Extremities: Normal Inspection, Normal Range of Motion, Non-Tender, No Pedal Edema, Normal Capillary Refill Skin: Warm, Dry, Intact Wound/Incisions: Healing Well, Other (swelling noted) Neurological: No New Focal Deficit Psy/Mental Status: Alert, Normal Affect, Normal Mood - Problem List & Annotations (1) SNOMED Code(s): 88902289 Code(s): Z34.90 - ENCNTR FOR SUPRVSN OF NORMAL , UNSP, UNSP TRIMESTER Status: Acute Current Visit: Yes Qualifiers: Weeks of gestation: 40 weeks Qualified Code(s): Z3A.40 - 40 weeks gestation of (2) Post-dates SNOMED Code(s): 77627804 Code(s): O48.0 - POST-TERM Status: Acute Current Visit: Yes Qualifiers: Post-term type: 40-42 weeks gestation Qualified Code(s): O48.0 - Post-term (3) PUPP (pruritic urticarial papules and plaques of ) SNOMED Code(s): 10672171 Code(s): O26.86 - PRURITIC URTICARIAL PAPULES AND PLAQUES OF (PUPPP ) Status: Acute Current Visit: Yes (4) Laceration of labia majora SNOMED Code(s): 088731425 Code(s): S31.41XA - LACERATION W/O FOREIGN BODY OF VAGINA AND VULVA, INIT ENCNTR Status: Deleted Current Visit: Yes Qualifiers: Encounter type: initial encounter Qualified Code(s): S31.41XA - Laceration without foreign body of vagina and vulva, initial encounter (5) Laceration of labia minora SNOMED Code(s): 346796963 Code(s): S31.41XA - LACERATION W/O FOREIGN BODY OF VAGINA AND VULVA, INIT ENCNTR Status: Acute Current Visit: Yes Qualifiers: Encounter type: initial encounter Qualified Code(s): S31.41XA - Laceration without foreign body of vagina and vulva, initial encounter (6) Perineal laceration of labia SNOMED Code(s): 78572297 Code(s): S31.41XA - LACERATION W/O FOREIGN BODY OF VAGINA AND VULVA, INIT ENCNTR Status: Acute Current Visit: Yes Qualifiers: Encounter type: initial encounter Qualified Code(s): S31.41XA - Laceration without foreign body of vagina and vulva, initial encounter (7) Shoulder dystocia during labor and delivery SNOMED Code(s): 76711978 Code(s): O66.0 - OBSTRUCTED LABOR DUE TO SHOULDER DYSTOCIA Status: Acute Current Visit: Yes - Problem List Review Problem List Initiated/Reviewed/Updated: Yes - My Orders Last 24 Hours: My Active Orders 04/13/17 19:30 Saline Lock Insert [OM.PC] Routine 04/13/17 19:48 Patient Status [ADT] Routine Ambulate [RC] PER UNIT ROUTINE Notify Provider Vital Signs [RC] PRN Notify Provider [RC] PRN Up ad Kenneth [RC] ASDIRECTED Vital Signs [RC] PER UNIT ROUTINE Calcium Carbonate [Tums] 1,000 mg PO Q2H PRN Ondansetron [Zofran] 4 mg IV Q4H PRN Sodium Chloride 0.9% [Saline Flush] 10 ml FLUSH ASDIRECTED PRN DVT/VTE Prophylaxis Reflex [OM.PC] Routine Saline Lock Insert [OM.PC] Routine Resuscitation Status Routine 04/13/17 19:50 VTE/DVT Education [RC] Click to Edit 04/13/17 20:00 Lactated Ringers [Ringers, Lactated] 1,000 ml IV ASDIRECTED 04/13/17 20:31 diphenhydrAMINE [Benadryl] 25 - 50 mg PO Q4H PRN 04/13/17 20:35 Albuterol [Ventolin HFA] 8 gm INH Q2H PRN 04/13/17 20:37 RT Post Treatment Assessment [RC] Click to Edit 04/13/17 Dinner Regular Diet [DIET] 04/14/17 02:15 Patient Status [ADT] Routine 04/14/17 03:32 May Shower [RC] ASDIRECTED Consult to Home Health [CONS] Routine Acetaminophen [Tylenol Bulk Bottle] 325 mg PO Q4H PRN Acetaminophen/HYDROcodone [[place] 325-5 MG] 1 - 2 tab PO Q4H PRN Benzocaine [Dseh-X-Wydubgb 20% [place]] See Dose Instructions TOP Q4H PRN Docusate Sodium [Colace] 100 mg PO BID PRN Ibuprofen [Motrin Bulk Bottle] 600 mg PO Q6H PRN Lanolin [Lansinoh HPA] 1 gm TOP ASDIRECTED PRN Witch Christine [Tucks] 1 pad TOP ASDIRECTED PRN Assess Lochia [WOMSER] Per Unit Routine Assess Uterine Involution [WOMSER] Per Unit Routine 04/14/17 03:34 Ice Therapy [OM.PC] Per Unit Routine Perineal Care [OM.PC] Per Unit Routine Sitz Bath [OM.PC] Per Unit Routine 04/14/17 09:00 Vit with Ca/FA/Iron [ Plus Iron] 1 each PO DAILY 04/15/17 06:00 CBC WITH AUTO DIFF [HEME] Routine - Assessment Assessment:: 04/14/2017 22 yo G1 now P1 at 40 6/7 weeks gestation with a with a moderate shoulder dystocia after a precipitous delivery/labor Deep labial minora and majora laceration on the right labial with repair Small perineal abrasion repaired Labs-GBS negative, O positive, RPR nonreactive, Hep B negative, HIV negative 04/14/2017 Normal Vaginal Delivery on Delivery Day No signs of vaginal hematoma Fair Fundus firm bleeding decreasing Plans discharge 24-48 hrs - Plan Plan:: 04/13/2017 22 yo here at 40 5/7 gestational weeks for an elective induction of labor SVE-0/75/-1--2 Bishops Score-6 Cytotec 50mcg placed FHTs category one PUPP rash Currently not [place] on her own Plan- Monitor for active labor Monitor FHTs for cytotec protocol then can doppler intermittently when patient is awake or with vital signs Up ad kenneth Ambien 10mg for sleep Can give benadryl 25-50mg for itching if needed Pain Management per patient request Can give IV bolus of LR if needed Vital Signs per protocol of cytotec Can eat regular diet Have patient up around 0600 for shower and breakfast before initiation of pitocin or another dose of cytotec to be placed Anticipate and plan for a vaginal delivery 04/14/2017 Routine Cares Encourage and support Encourage good perineal care and ice, tucks, dermaplast, and sitz bath Start stool softener BID Home care referral Plan discharge in 24-48 hours 04/14/2017 Continue Routine Cares Continue to encourage and support Continue to encourage good perineal care and use of sitz, tub, tucks, spray, and ice Plan discharge in 24-48 hrs
[2017-04-14] MEDS: Prenatal Multivitamin with Calcium/Folic Acid/Iron Tab PO SCH (12:56)
[2017-04-14] MEDS: Docusate Sodium 100 MG Cap PO PRN (20:42)
[2017-04-15] MEDS: Acetaminophen/HYDROcodone 325-5 MG Tab PO PRN ×3 (07:44→18:13)
--- NOTE | 2017-04-15 08:13 | PCM.PNPP ---
- General Info Date of Service: 04/15/17 Functional Status: Reports: Pain Controlled - Review of Systems General: Reports: No Symptoms HEENT: Reports: No Symptoms Pulmonary: Reports: No Symptoms Cardiovascular: Reports: No Symptoms Gastrointestinal: Reports: No Symptoms Genitourinary: Reports: No Symptoms Musculoskeletal: Reports: No Symptoms Skin: Reports: No Symptoms Neurological: Reports: No Symptoms Psychiatric: Reports: No Symptoms - General Info Date of Service: 04/15/17 - Patient Data Vital Signs - Most Recent: Last Vital Signs Temp 36.6 C 04/14/17 20:00 Pulse 83 04/14/17 20:00 Resp 16 04/14/17 20:00 BP 117/65 04/14/17 20:00 Pulse Ox 98 04/14/17 20:00 Weight - Most Recent: 73.936 kg Lab Results - Last 24 Hours: Laboratory Results - last 24 hr 04/15/17 Range/Units 05:39 WBC 13.9 H (4.5-11.0) K/uL RBC 3.96 (3.30-5.50) M/uL Hgb 11.5 L D (12.0-15.0) g/dL Hct 35.5 L (36.0-48.0) % MCV 90 (80-98) fL MCH 29 (27-31) pg MCHC 32 (32-36) % Plt Count 189 (150-400) K/uL Neut % (Auto) 64 (36-66) % Lymph % (Auto) 25 (24-44) % [place] % (Auto) 7 H (2-6) % Eos % (Auto) 4 (2-4) % Baso % (Auto) 0 (0-1) % Med Orders - Current: Current Medications Acetaminophen (Tylenol Bulk Bottle) 325 mg PO Q4H PRN PRN Reason: Pain Hydrocodone Bitart/Acetaminophen ([place] 325-5 Mg) 1 - 2 tab PO Q4H PRN PRN Reason: Pain (moderate 4-6) Last Admin: 04/15/17 07:44 Dose: 2 tab Albuterol (Ventolin Hfa) 8 gm INH Q2H PRN PRN Reason: Shortness of Breath Benzocaine (Kjll-Z-Qxfjdct 20% [place]) 0 gm TOP Q4H PRN PRN Reason: Perineal Comfort Measure Last Admin: 04/14/17 05:34 Dose: 1 spray Calcium Carbonate/Glycine (Tums) 1,000 mg PO Q2H PRN PRN Reason: Indigestion Diphenhydramine HCl (Benadryl) 25 - 50 mg PO Q4H PRN PRN Reason: Itching Last Admin: 04/13/17 23:50 Dose: 25 mg Docusate Sodium (Colace) 100 mg PO BID PRN PRN Reason: Constipation Last Admin: 04/14/17 20:42 Dose: 100 mg Emollient Ointment (Lansinoh Hpa) 1 gm TOP ASDIRECTED PRN PRN Reason: Sore Nipples Last Admin: 04/14/17 05:35 Dose: 1 applic Lactated Ringer's (Ringers, Lactated) 1,000 mls @ 125 mls/hr IV ASDIRECTED DIANNE Ibuprofen (Motrin Bulk Bottle) 600 mg PO Q6H PRN PRN Reason: Pain Last Admin: 04/14/17 12:57 Dose: 600 mg Ondansetron HCl (Zofran) 4 mg IV Q4H PRN PRN Reason: Nausea/Vomiting Prenat Multivit/[place]/Iron/Folic Ac ( Plus Iron) 1 each PO DAILY DINANE Last Admin: 04/14/17 12:56 Dose: 1 each Sodium Chloride (Saline Flush) 10 ml FLUSH ASDIRECTED PRN PRN Reason: Keep Vein Open Witch Christine (Tucks) 1 pad TOP ASDIRECTED PRN PRN Reason: Hemorrhoids Last Admin: 04/14/17 05:33 Dose: 1 pad Discontinued Medications Acetaminophen (Tylenol) 650 mg PO Q4H PRN PRN Reason: Pain (Mild 1-3) and fever Fentanyl (Sublimaze) 100 mcg IVPUSH Q1H PRN PRN Reason: Pain (moderate 4-6) Last Admin: 04/14/17 02:32 Dose: 100 mcg Oxytocin/Sodium Chloride (Pitocin In Ns 20 Units/1,000 Ml) Confirm Administered Dose 20 unit in 1,000 mls @ as directed .ROUTE .STK-MED ONE Stop: 04/14/17 01:56 Last Admin: 04/14/17 02:15 Dose: 500 unit Oxytocin/Sodium Chloride (Pitocin In Ns 20 Units/1,000 Ml) 20 unit in 1,000 mls @ 2,997 mls/hr IV ONETIME ONE; 999 MUNITS/MIN PRN Reason: Protocol Stop: 04/14/17 03:58 Last Admin: 04/14/17 05:45 Dose: Not Given Ibuprofen (Motrin) 600 mg PO Q6H PRN PRN Reason: mild pain or fever Lidocaine HCl (Xylocaine 1%) Confirm Administered Dose 100 ml .ROUTE .STK-MED ONE Stop: 04/14/17 01:55 Last Admin: 04/14/17 02:36 Dose: 50 ml Lidocaine HCl (Xylocaine 1%) 0 ml INJECT ONETIME ONE Stop: 04/13/17 01:01 Last Admin: 04/14/17 12:28 Dose: Not Given Mineral Oil (Muri-Lube) Confirm Administered Dose 10 ml .ROUTE .STK-MED ONE Stop: 04/14/17 01:55 Last Admin: 04/14/17 05:40 Dose: Not Given Misoprostol (Cytotec) 50 mcg VAG ONETIME ONE Stop: 04/13/17 19:53 Last Admin: 04/13/17 20:29 Dose: 50 mcg Naloxone HCl (Narcan) Confirm Administered Dose 0.4 mg .ROUTE .STK-MED ONE Stop: 04/14/17 01:55 Last Admin: 04/14/17 05:40 Dose: Not Given Oxytocin (Pitocin) Confirm Administered Dose 10 unit .ROUTE .STK-MED ONE Stop: 04/14/17 01:55 Last Admin: 04/14/17 05:40 Dose: Not Given Sodium Chloride (Saline Flush) 10 ml FLUSH ASDIRECTED PRN PRN Reason: Keep Vein Open Zolpidem Tartrate (Ambien) 10 mg PO ONETIME ONE Stop: 04/13/17 19:54 Last Admin: 04/13/17 22:15 Dose: 10 mg Zolpidem Tartrate (Ambien) Confirm Administered Dose 10 mg .ROUTE .STK-MED ONE Stop: 04/13/17 22:15 Last Admin: 04/13/17 22:10 Dose: 10 mg - Infant Interaction Disposition, : [place] at Bedside Infant Interaction: Holding Infant Feeding: Attempted ; Nursed Fair/Poor, Encouraged to Breastfeed Support Person: Significant Other - Recovery Exam Fundal Tone: [place] with Massage Fundal Level: 2 Fingerbreadths Below Umbilicus Fundal Placement: Midline Lochia Amount: Small Lochia Color: Rubra/Red Perineum Description: Intact, Minimal Bruising/Swelling Episiotomy/Laceration: Approximated Bladder Status: Voiding Urinary Elimination: Voided - Exam General: Alert, Oriented HEENT: Pupils Equal Neck: Supple Lungs: Clear to Auscultation, Normal Respiratory Effort Cardiovascular: Regular Rate, Regular Rhythm GI/Abdominal Exam: Normal Bowel Sounds, Soft, Non-Tender, No Organomegaly, No Distention, No Abnormal Bruit, No Mass, Pelvis Stable Extremities: Normal Inspection, Normal Range of Motion, Non-Tender, No Pedal Edema, Normal Capillary Refill Skin: Warm, Dry, Intact, Other (minimal swelling still noted better than yesterday, sutures intact, no signs of a hematoma) Wound/Incisions: Healing Well Neurological: No New Focal Deficit Psy/Mental Status: Alert, Normal Affect, Normal Mood - Problem List & Annotations (1) SNOMED Code(s): 98487711 Code(s): Z34.90 - ENCNTR FOR SUPRVSN OF NORMAL , UNSP, UNSP TRIMESTER Status: Acute Current Visit: Yes Qualifiers: Weeks of gestation: 40 weeks Qualified Code(s): Z3A.40 - 40 weeks gestation of (2) Post-dates SNOMED Code(s): 94722284 Code(s): O48.0 - POST-TERM Status: Acute Current Visit: Yes Qualifiers: Post-term type: 40-42 weeks gestation Qualified Code(s): O48.0 - Post-term (3) PUPP (pruritic urticarial papules and plaques of ) SNOMED Code(s): 38864137 Code(s): O26.86 - PRURITIC URTICARIAL PAPULES AND PLAQUES OF (PUPPP ) Status: Acute Current Visit: Yes (4) Laceration of labia majora SNOMED Code(s): 525023529 Code(s): S31.41XA - LACERATION W/O FOREIGN BODY OF VAGINA AND VULVA, INIT ENCNTR Status: Deleted Current Visit: Yes Qualifiers: Encounter type: initial encounter Qualified Code(s): S31.41XA - Laceration without foreign body of vagina and vulva, initial encounter (5) Laceration of labia minora SNOMED Code(s): 346567218 Code(s): S31.41XA - LACERATION W/O FOREIGN BODY OF VAGINA AND VULVA, INIT ENCNTR Status: Acute Current Visit: Yes Qualifiers: Encounter type: initial encounter Qualified Code(s): S31.41XA - Laceration without foreign body of vagina and vulva, initial encounter (6) Perineal laceration of labia SNOMED Code(s): 42254092 Code(s): S31.41XA - LACERATION W/O FOREIGN BODY OF VAGINA AND VULVA, INIT ENCNTR Status: Acute Current Visit: Yes Qualifiers: Encounter type: initial encounter Qualified Code(s): S31.41XA - Laceration without foreign body of vagina and vulva, initial encounter (7) Shoulder dystocia during labor and delivery SNOMED Code(s): 61608175 Code(s): O66.0 - OBSTRUCTED LABOR DUE TO SHOULDER DYSTOCIA Status: Acute Current Visit: Yes - Problem List Review Problem List Initiated/Reviewed/Updated: Yes - My Orders Last 24 Hours: My Active Orders 04/14/17 09:00 Vit with Ca/FA/Iron [ Plus Iron] 1 each PO DAILY - Assessment Assessment:: 04/14/2017 22 yo G1 now P1 at 40 6/7 weeks gestation with a with a moderate shoulder dystocia after a precipitous delivery/labor Deep labial minora and majora laceration on the right labial with repair Small perineal abrasion repaired Labs-GBS negative, O positive, RPR nonreactive, Hep B negative, HIV negative 04/14/2017 Normal Vaginal Delivery on Delivery Day No signs of vaginal hematoma Fair Fundus firm bleeding decreasing Plans discharge 24-48 hrs 04/15/2017 Day Day One Laceration healing, less swelling, no signs of hematoma better today Fundus is firm and bleeding decreased Hgb 11.5 Plan discharge tomorrow - Plan Plan:: 04/13/2017 22 yo here at 40 5/7 gestational weeks for an elective induction of labor SVE-0/75/-1--2 Bishops Score-6 Cytotec 50mcg placed FHTs category one PUPP rash Currently not [place] on her own Plan- Monitor for active labor Monitor FHTs for cytotec protocol then can doppler intermittently when patient is awake or with vital signs Up ad kenneth Ambien 10mg for sleep Can give benadryl 25-50mg for itching if needed Pain Management per patient request Can give IV bolus of LR if needed Vital Signs per protocol of cytotec Can eat regular diet Have patient up around 0600 for shower and breakfast before initiation of pitocin or another dose of cytotec to be placed Anticipate and plan for a vaginal delivery 04/14/2017 Routine Cares Encourage and support Encourage good perineal care and ice, tucks, dermaplast, and sitz bath Start stool softener BID Home care referral Plan discharge in 24-48 hours 04/14/2017 Continue Routine Cares Continue to encourage and support Continue to encourage good perineal care and use of sitz, tub, tucks, spray, and ice Plan discharge in 24-48 hrs 04/15/2017 Continue Routine Cares Continue to encourage and support Continue to encourage good perineal care and us of sitz, tub, tucks, spray, and ice IV can be d/c'd Plan discharge tomorrow
[2017-04-15] MEDS ORDERED: Triamcinolone Acetonide 0.1% Crm 15 GM Tube TOP PRN (09:18)
[2017-04-15] MEDS: Prenatal Multivitamin with Calcium/Folic Acid/Iron Tab PO SCH (11:04)
[2017-04-15 18:42] VITALS: BP 100/63
[2017-04-15] MEDS: diphenhydrAMINE 25 MG Cap PO PRN (21:27)
[2017-04-15] MEDS: Docusate Sodium 100 MG Cap PO PRN (21:27)
--- NOTE | 2017-04-16 08:38 | PCM.PNPP ---
- General Info Date of Service: 04/16/17 ( Day Two) Functional Status: Reports: Pain Controlled - Review of Systems General: Reports: No Symptoms HEENT: Reports: No Symptoms Pulmonary: Reports: No Symptoms Cardiovascular: Reports: No Symptoms Gastrointestinal: Reports: No Symptoms Genitourinary: Reports: No Symptoms Musculoskeletal: Reports: No Symptoms Skin: Reports: No Symptoms Neurological: Reports: No Symptoms Psychiatric: Reports: No Symptoms - General Info Date of Service: 04/16/17 - Patient Data Vital Signs - Most Recent: Last Vital Signs Temp 36.5 C 04/15/17 18:41 Pulse 87 04/15/17 18:41 Resp 16 04/15/17 18:41 BP 100/63 04/15/17 18:41 Pulse Ox 98 04/15/17 18:41 Weight - Most Recent: 73.936 kg I&O - Last 24 Hours: Intake & Output 04/15/17 04/16/17 04/16/17 22:59 06:59 14:59 Intake Total 1999 Balance 1999 Med Orders - Current: Current Medications Acetaminophen (Tylenol Bulk Bottle) 325 mg PO Q4H PRN PRN Reason: Pain Hydrocodone Bitart/Acetaminophen ([place] 325-5 Mg) 1 - 2 tab PO Q4H PRN PRN Reason: Pain (moderate 4-6) Last Admin: 04/15/17 18:13 Dose: 2 tab Albuterol (Ventolin Hfa) 8 gm INH Q2H PRN PRN Reason: Shortness of Breath Benzocaine ([id number] 20% [place]) 0 gm TOP Q4H PRN PRN Reason: Perineal Comfort Measure Last Admin: 04/14/17 05:34 Dose: 1 spray Calcium Carbonate/Glycine (Tums) 1,000 mg PO Q2H PRN PRN Reason: Indigestion Diphenhydramine HCl (Benadryl) 25 - 50 mg PO Q4H PRN PRN Reason: Itching Last Admin: 04/15/17 21:27 Dose: 25 mg Docusate Sodium (Colace) 100 mg PO BID PRN PRN Reason: Constipation Last Admin: 04/15/17 21:27 Dose: 100 mg Emollient Ointment (Lansinoh Hpa) 1 gm TOP ASDIRECTED PRN PRN Reason: Sore Nipples Last Admin: 04/14/17 05:35 Dose: 1 applic Lactated Ringer's (Ringers, Lactated) 1,000 mls @ 125 mls/hr IV ASDIRECTED DIANNE Ibuprofen (Motrin Bulk Bottle) 600 mg PO Q6H PRN PRN Reason: Pain Last Admin: 04/14/17 12:57 Dose: 600 mg Ondansetron HCl (Zofran) 4 mg IV Q4H PRN PRN Reason: Nausea/Vomiting Prenat Multivit/Stryker/Iron/Folic Ac ( Plus Iron) 1 each PO DAILY DIANNE Last Admin: 04/15/17 11:04 Dose: 1 each Sodium Chloride (Saline Flush) 10 ml FLUSH ASDIRECTED PRN PRN Reason: Keep Vein Open Triamcinolone Acetonide (Triamcinolone Acetonide 0.1% Crm) 0 gm TOP ASDIRECTED PRN PRN Reason: Itching Last Admin: 04/15/17 11:04 Dose: 1 applic Domenic Aranael (Tucks) 1 pad TOP ASDIRECTED PRN PRN Reason: Hemorrhoids Last Admin: 04/14/17 05:33 Dose: 1 pad Discontinued Medications Acetaminophen (Tylenol) 650 mg PO Q4H PRN PRN Reason: Pain (Mild 1-3) and fever Fentanyl (Sublimaze) 100 mcg IVPUSH Q1H PRN PRN Reason: Pain (moderate 4-6) Last Admin: 04/14/17 02:32 Dose: 100 mcg Oxytocin/Sodium Chloride (Pitocin In Ns 20 Units/1,000 Ml) Confirm Administered Dose 20 unit in 1,000 mls @ as directed .ROUTE .[employer]-MED ONE Stop: 04/14/17 01:56 Last Admin: 04/14/17 02:15 Dose: 500 unit Oxytocin/Sodium Chloride (Pitocin In Ns 20 Units/1,000 Ml) 20 unit in 1,000 mls @ 2,997 mls/hr IV ONETIME ONE; 999 MUNITS/MIN PRN Reason: Protocol Stop: 04/14/17 03:58 Last Admin: 04/14/17 05:45 Dose: Not Given Ibuprofen (Motrin) 600 mg PO Q6H PRN PRN Reason: mild pain or fever Lidocaine HCl (Xylocaine 1%) Confirm Administered Dose 100 ml .ROUTE .STK-MED ONE Stop: 04/14/17 01:55 Last Admin: 04/14/17 02:36 Dose: 50 ml Lidocaine HCl (Xylocaine 1%) 0 ml INJECT ONETIME ONE Stop: 04/13/17 01:01 Last Admin: 04/14/17 12:28 Dose: Not Given Mineral Oil (Muri-Lube) Confirm Administered Dose 10 ml .ROUTE .STK-MED ONE Stop: 04/14/17 01:55 Last Admin: 04/14/17 05:40 Dose: Not Given Misoprostol (Cytotec) 50 mcg VAG ONETIME ONE Stop: 04/13/17 19:53 Last Admin: 04/13/17 20:29 Dose: 50 mcg Naloxone HCl (Narcan) Confirm Administered Dose 0.4 mg .ROUTE .STK-MED ONE Stop: 04/14/17 01:55 Last Admin: 04/14/17 05:40 Dose: Not Given Oxytocin (Pitocin) Confirm Administered Dose 10 unit .ROUTE .STK-MED ONE Stop: 04/14/17 01:55 Last Admin: 04/14/17 05:40 Dose: Not Given Sodium Chloride (Saline Flush) 10 ml FLUSH ASDIRECTED PRN PRN Reason: Keep Vein Open Zolpidem Tartrate (Ambien) 10 mg PO ONETIME ONE Stop: 04/13/17 19:54 Last Admin: 04/13/17 22:15 Dose: 10 mg Zolpidem Tartrate (Ambien) Confirm Administered Dose 10 mg .ROUTE .STK-MED ONE Stop: 04/13/17 22:15 Last Admin: 04/13/17 22:10 Dose: 10 mg - Infant Interaction Disposition, : [place] at Bedside Infant Interaction: Holding Infant Feeding: Attempted ; Nursed Fair/Poor, Encouraged to Breastfeed Support Person: Significant Other - Recovery Exam Fundal Tone: Firm Fundal Level: 2 Fingerbreadths Below Umbilicus Fundal Placement: Midline Lochia Amount: Small Lochia Color: Rubra/Red Perineum Description: Intact, Minimal Bruising/Swelling Episiotomy/Laceration: Approximated Bladder Status: Voiding Urinary Elimination: Voided - Exam General: Alert, Oriented HEENT: Pupils Equal Neck: Supple Lungs: Clear to Auscultation, Normal Respiratory Effort Cardiovascular: Regular Rate, Regular Rhythm GI/Abdominal Exam: Normal Bowel Sounds, Soft, Non-Tender, No Organomegaly, No Distention, No Abnormal Bruit, No Mass, Pelvis Stable Extremities: Normal Inspection, Normal Range of Motion, Non-Tender, No Pedal Edema, Normal Capillary Refill Skin: Warm, Dry, Intact, Other (PUPP rash throughout body) Wound/Incisions: Healing Well, Other (labial laceration minimal swelling and erythema today) Neurological: No New Focal Deficit Psy/Mental Status: Alert, Normal Affect, Normal Mood - Problem List & Annotations (1) SNOMED Code(s): 61973766 Code(s): Z34.90 - ENCNTR FOR SUPRVSN OF NORMAL , UNSP, UNSP TRIMESTER Status: Acute Current Visit: Yes Qualifiers: Weeks of gestation: 40 weeks Qualified Code(s): Z3A.40 - 40 weeks gestation of (2) Post-dates SNOMED Code(s): 95841158 Code(s): O48.0 - POST-TERM Status: Acute Current Visit: Yes Qualifiers: Post-term type: 40-42 weeks gestation Qualified Code(s): O48.0 - Post-term (3) PUPP (pruritic urticarial papules and plaques of ) SNOMED Code(s): 02880402 Code(s): O26.86 - PRURITIC URTICARIAL PAPULES AND PLAQUES OF (PUPPP ) Status: Acute Current Visit: Yes (4) Laceration of labia majora SNOMED Code(s): 200831493 Code(s): S31.41XA - LACERATION W/O FOREIGN BODY OF VAGINA AND VULVA, INIT ENCNTR Status: Deleted Current Visit: Yes Qualifiers: Encounter type: initial encounter Qualified Code(s): S31.41XA - Laceration without foreign body of vagina and vulva, initial encounter (5) Laceration of labia minora SNOMED Code(s): 286216752 Code(s): S31.41XA - LACERATION W/O FOREIGN BODY OF VAGINA AND VULVA, INIT ENCNTR Status: Acute Current Visit: Yes Qualifiers: Encounter type: initial encounter Qualified Code(s): S31.41XA - Laceration without foreign body of vagina and vulva, initial encounter (6) Perineal laceration of labia SNOMED Code(s): 00585131 Code(s): S31.41XA - LACERATION W/O FOREIGN BODY OF VAGINA AND VULVA, INIT ENCNTR Status: Acute Current Visit: Yes Qualifiers: Encounter type: initial encounter Qualified Code(s): S31.41XA - Laceration without foreign body of vagina and vulva, initial encounter (7) Shoulder dystocia during labor and delivery SNOMED Code(s): 36723721 Code(s): O66.0 - OBSTRUCTED LABOR DUE TO SHOULDER DYSTOCIA Status: Acute Current Visit: Yes - Problem List Review Problem List Initiated/Reviewed/Updated: Yes - My Orders Last 24 Hours: My Active Orders 04/15/17 09:18 Triamcinolone Acetonide [Triamcinolone Acetonide 0.1% Crm] 0 gm TOP ASDIRECTED PRN - Assessment Assessment:: 04/14/2017 22 yo G1 now P1 at 40 6/7 weeks gestation with a with a moderate shoulder dystocia after a precipitous delivery/labor Deep labial minora and majora laceration on the right labial with repair Small perineal abrasion repaired Labs-GBS negative, O positive, RPR nonreactive, Hep B negative, HIV negative 04/14/2017 Normal Vaginal Delivery on Delivery Day No signs of vaginal hematoma Fair Fundus firm bleeding decreasing Plans discharge 24-48 hrs 04/15/2017 Day Day One Laceration healing, less swelling, no signs of hematoma better today Fundus is firm and bleeding decreased Hgb 11.5 Plan discharge tomorrow 04/16/2017 Day Two Laceration healing well, minimal swelling, no signs of a hematoma good Fundus firm and bleeding decreased Plan discharge today - Plan Plan:: 04/13/2017 22 yo here at 40 5/7 gestational weeks for an elective induction of labor SVE-0/75/-1--2 Bishops Score-6 Cytotec 50mcg placed FHTs category one PUPP rash Currently not [place] on her own Plan- Monitor for active labor Monitor FHTs for cytotec protocol then can doppler intermittently when patient is awake or with vital signs Up ad kenneth Ambien 10mg for sleep Can give benadryl 25-50mg for itching if needed Pain Management per patient request Can give IV bolus of LR if needed Vital Signs per protocol of cytotec Can eat regular diet Have patient up around 0600 for shower and breakfast before initiation of pitocin or another dose of cytotec to be placed Anticipate and plan for a vaginal delivery 04/14/2017 Routine Cares Encourage and support Encourage good perineal care and ice, tucks, dermaplast, and sitz bath Start stool softener BID Home care referral Plan discharge in 24-48 hours 04/14/2017 Continue Routine Cares Continue to encourage and support Continue to encourage good perineal care and use of sitz, tub, tucks, spray, and ice Plan discharge in 24-48 hrs 04/15/2017 Continue Routine Cares Continue to encourage and support Continue to encourage good perineal care and us of sitz, tub, tucks, spray, and ice IV can be d/c'd Plan discharge tomorrow 04/16/2017 Continue Routine Cares Continue to encourage and support Continue to encourage and educate on good perineal care, use of sitz, tub, spray , and ice Continue Kenalog and benadryl PRN at home for PUPP rash Plan to see me in 6 weeks for visit Plan discharge today
[2017-04-16] MEDS: Prenatal Multivitamin with Calcium/Folic Acid/Iron Tab PO SCH (09:52)
== END 2017-04-16 16:15 | disposition home or self-care (01) | DRG 560 ==
LOC: JP.OB 18:56 → OBSVTOIN 04-14 02:13 → JP.MS 04-14 05:19
PROVIDERS: ADMIT Advanced Practice Midwife; ATTEND Advanced Practice Midwife
PROC: 0UQM0ZZ Repair Vulva, Open Approach (ICD-10-PCS; principal; 2017-04-14)
PROC: 3E0P7GC Introduction of Other Therapeutic Substance into Female Reproductive, Via Natural or Artificial Opening (ICD-10-PCS; principal; 2017-04-14)
PROC: 0HQ9XZZ Repair Perineum Skin, External Approach (ICD-10-PCS; principal; 2017-04-14)
PROC: 3E033VJ Introduction of Other Hormone into Peripheral Vein, Percutaneous Approach (ICD-10-PCS; principal; 2017-04-14)
PROC: 10E0XZZ Delivery of Products of Conception, External Approach (ICD-10-PCS; principal; 2017-04-14)
DX: O62.3 Precipitate labor (principal); O66.0 Obstructed labor due to shoulder dystocia; O69.1XX0 Labor and delivery complicated by cord around neck, with compression, not applicable or unspecified; O70.0 First degree perineal laceration during delivery; O48.0 Post-term pregnancy; Z3A.40 40 weeks gestation of pregnancy; Z37.0 Single live birth; Z88.1 Allergy status to other antibiotic agents; O99.519 Diseases of the respiratory system complicating pregnancy, unspecified trimester; J45.909 Unspecified asthma, uncomplicated; O26.86 Pruritic urticarial papules and plaques of pregnancy (PUPPP)
CPT/HCPCS: 36415; 80053; 80305; 81001; 84550; 85025; 88307; 99211; A9270-GY; J2590; J3010

== ENCOUNTER 2017-08-22 11:00 | Emergency (ER) | payer SELFPAY ==
[2017-08-22 11:48] VITALS: BP 129/81
--- NOTE | 2017-08-22 11:48 | EDM.PDOC ---
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 Problem Stated Complaint: HEAVY MENSTRUAL BLEEDING Time Seen by Provider: 08/22/17 11:27 Source of Information: Reports: Patient, Old Records, RN Notes Reviewed History Limitations: Reports: No Limitations - History of Present Illness INITIAL COMMENTS - FREE TEXT/NARRATIVE: 22-year-old female presents emergency department today complaint of vaginal bleeding, she states she's had troubles with vaginal bleeding on and off for the last 3 weeks and usually starts with a couple heavy days similar to normal menstruation, then stops this is now her third event however this vaginal bleeding is significantly heavier greater than a pad per hour with passage of clots. She is a 1 para 1 delivered April 152016 had a normal post . Was recently started on Depo-Provera first part of June has never been on control before, denies any other symptoms - Related Data Allergies Allergy/AdvReac Type Severity Reaction Status Date / Time amoxicillin Allergy Hives Verified 08/22/17 11:18 Home Meds: Home Meds Acetaminophen [Tylenol Extra Strength] 500 mg PO ASDIRECTED 08/18/16 [History] Albuterol [Ventolin HFA] 2 puff INH ASDIRECTED 08/18/16 [History] Montelukast [Singulair] 10 mg PO BEDTIME 08/18/16 [History] Vits #93/Iron Fum/FA [ Formula Tablet] 1 tab PO DAILY 08/18/16 [History] Loratadine [Claritin] 1 tab PO BEDTIME 08/22/17 [History] Past Medical History HEENT History: Reports: Allergic Rhinitis 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: Reports: Asthma 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 OB/BYN History: BOO-04/08/2017 Musculoskeletal History: Reports: Fracture Other Musculoskeletal History: fractured shoulder x's 3 Psychiatric History: Reports: Anxiety, Panic Attack Hematologic History: Reports: Other (See Below) Other Hematologic History: low WBC with unknown cause Dermatologic History: Reports: Other (See Below) Other Dermatologic History: PUPP - Infectious Disease History Infectious Disease History: Reports: Chicken Pox - Past Surgical History HEENT Surgical History: Reports: None Respiratory Surgical History: Reports: None Musculoskeletal Surgical History: Reports: None Social & Family History - Family History Family Medical History: Noncontributory - Tobacco Use Smoking Status *Q: Light Tobacco Smoker Years of Tobacco use: 5 Packs/Tins Daily: 0.2 Used Tobacco, but Quit: Yes Month Tobacco Last Used: [place] [employer] Smoke Exposure: Yes - Caffeine Use Caffeine Use: Reports: Soda Other Caffeine Use: 1 cup daily - Recreational Drug Use Recreational Drug Use: No Recreational Drug Type: Reports: Marijuana/Hashish ED ROS GENERAL - Review of Systems Review Of Systems: See Below Constitutional: Denies: Fever, Chills HEENT: Reports: No Symptoms Respiratory: Reports: No Symptoms Cardiovascular: Reports: No Symptoms GI/Abdominal: Reports: No Symptoms : Reports: Irregular Menses. Denies: Flank Pain, Pain ED EXAM, GENERAL - Physical Exam Exam: See Below Exam Limited By: No Limitations General Appearance: Alert, WD/WN, No Apparent Distress Respiratory/Chest: No Respiratory Distress GI/Abdominal: Soft, Non-Tender (Female) Exam: Normal External Exam, Normal Speculum Exam, Normal Bimanual Exam, Vaginal Bleeding. No: Adnexal Mass, Adnexal Tenderness, Cervical Dilatation, Cervical Lesions, Cervix Motion Tenderness, Enlarged Uterus, Vaginal Discharge, Vaginal Lesions, Vaginal Tears Rectal (Female) Exam: Normal Exam Back Exam: No: CVA Tenderness (R), CVA Tenderness (L) Course - Vital Signs Last Recorded V/S: Last Vital Signs Temp 96.4 F 08/22/17 11:17 Pulse 96 08/22/17 11:17 Resp 16 08/22/17 11:17 BP 129/81 08/22/17 11:17 Pulse Ox 95 08/22/17 11:17 - Orders/Labs/Meds Orders: Active Orders 24 hr Category Date Time Status Pelvis Non OB Comp [US] Stat Exams 08/22/17 11:52 Ordered Transvaginal Non OB [US] Stat Exams 08/22/17 12:39 Ordered Labs: Laboratory Tests 08/22/17 08/22/17 08/22/17 Range/Units 11:50 11:50 11:50 WBC 6.4 (4.5-11.0) K/uL RBC 4.88 (3.30-5.50) M/uL Hgb 14.0 D (12.0-15.0) g/dL Hct 41.8 (36.0-48.0) % MCV 86 (80-98) fL MCH 29 (27-31) pg MCHC 34 (32-36) % Plt Count 320 (150-400) K/uL Neut % (Auto) 51 (36-66) % Lymph % (Auto) 33 (24-44) % [place] % (Auto) 9 H (2-6) % Eos % (Auto) 6 H (2-4) % Baso % (Auto) 1 (0-1) % PT 10.5 (9.5-12.0) sec INR 0.98 (0.80-1.20) APTT 27.0 (27.0-36.0) sec Sodium 143 (140-148) mmol/L Potassium 3.9 (3.6-5.2) mmol/L Chloride 105 (100-108) mmol/L Carbon Dioxide 26 (21-32) mmol/L Anion Gap 11.9 (5.0-14.0) mmol/L BUN 12 (7-18) mg/dL Creatinine 0.7 (0.6-1.0) mg/dL Est Cr Clr Drug Dosing 72.86 mL/min Estimated GFR (MDRD) > 60 (>60) Glucose 94 (74-106) mg/dL Calcium 8.9 (8.5-10.1) mg/dL Total Bilirubin 0.4 D (0.2-1.0) mg/dL AST 18 (15-37) U/L ALT 38 D (12-78) U/L Alkaline Phosphatase 81 (46-116) U/L Total Protein 7.0 (6.4-8.2) g/dL Albumin 3.9 (3.4-5.0) g/dL Globulin 3.1 (2.3-3.5) g/dL Albumin/Globulin Ratio 1.3 (1.2-2.2) Urine Color Urine Appearance Urine pH (4.5-8.0) Ur Specific [place] (1.008-1.030) Urine Protein (NEGATIVE) mg/dL Urine Glucose (UA) (NEGATIVE) mg/dL Urine Ketones (NEGATIVE) mg/dL Urine Occult Blood (NEGATIVE) Urine Nitrite (NEGATIVE) Urine Bilirubin (NEGATIVE) Urine Urobilinogen (NORMAL) mg/dL Ur Leukocyte Esterase (NEGATIVE) Urine RBC (0-5) Urine WBC (0-5) Ur Epithelial Cells Amorphous Sediment Urine Bacteria Urine Mucus Urine HCG, Qual 08/22/17 08/22/17 Range/Units 11:58 11:58 WBC (4.5-11.0) K/uL RBC (3.30-5.50) M/uL Hgb (12.0-15.0) g/dL Hct (36.0-48.0) % MCV (80-98) fL MCH (27-31) pg MCHC (32-36) % Plt Count (150-400) K/uL Neut % (Auto) (36-66) % Lymph % (Auto) (24-44) % [place] % (Auto) (2-6) % Eos % (Auto) (2-4) % Baso % (Auto) (0-1) % PT (9.5-12.0) sec INR (0.80-1.20) APTT (27.0-36.0) sec Sodium (140-148) mmol/L Potassium (3.6-5.2) mmol/L Chloride (100-108) mmol/L Carbon Dioxide (21-32) mmol/L Anion Gap (5.0-14.0) mmol/L BUN (7-18) mg/dL Creatinine (0.6-1.0) mg/dL Est Cr Clr Drug Dosing mL/min Estimated GFR (MDRD) (>60) Glucose (74-106) mg/dL Calcium (8.5-10.1) mg/dL Total Bilirubin (0.2-1.0) mg/dL AST (15-37) U/L ALT (12-78) U/L Alkaline Phosphatase (46-116) U/L Total Protein (6.4-8.2) g/dL Albumin (3.4-5.0) g/dL Globulin (2.3-3.5) g/dL Albumin/Globulin Ratio (1.2-2.2) Urine Color Yellow Urine Appearance Cloudy Urine pH 5.0 (4.5-8.0) Ur Specific [place] 1.020 (1.008-1.030) Urine Protein Negative (NEGATIVE) mg/dL Urine Glucose (UA) Normal (NEGATIVE) mg/dL Urine Ketones Negative (NEGATIVE) mg/dL Urine Occult Blood Large (NEGATIVE) Urine Nitrite Negative (NEGATIVE) Urine Bilirubin Negative (NEGATIVE) Urine Urobilinogen Normal (NORMAL) mg/dL Ur Leukocyte Esterase Negative (NEGATIVE) Urine RBC 30-40 H (0-5) Urine WBC 0-5 (0-5) Ur Epithelial Cells Few Amorphous Sediment Not seen Urine Bacteria Not seen Urine Mucus Not seen Urine HCG, Qual Negative Departure - Departure Time of Disposition: 13:09 Disposition: Home, Self-Care 01 Condition: Good Clinical Impression: Vagina bleeding - Discharge Information Referrals: Gayla Valladares CNM [Primary Care Provider] - Forms: ED Department Discharge Additional Instructions: Please followup with your primary care provider in 3-5 days if not better, please call return to the emergency department with worsening of symptoms. - My Orders Last 24 Hours: My Active Orders 08/22/17 11:52 Pelvis Non OB Comp [US] Stat 08/22/17 12:39 Transvaginal Non OB [US] Stat - Assessment/Plan Last 24 Hours: My Active Orders 08/22/17 11:52 Pelvis Non OB Comp [US] Stat 08/22/17 12:39 Transvaginal Non OB [US] Stat Plan: Assessment Acuity = acute Site and laterality = vaginal bleeding Etiology = unclear etiology suspicious for side effect of Depo-Provera Manifestations = none Location of injury = Home Lab values = CBC, CMP, INR within normal limits urinalysis demonstrates 30-40 rbc's consistent with a hematuria, ultrasound shows no acute process other than fluid in the uterine vault official read radiologist pending Plan I did review lab work and ultrasound results her discussed options including medication treatment with medroxyprogesterone she declined at this time is planning on changing to IUD for control, her Depo-Provera was given and of May she elected to do watchful waiting is going to follow-up with her primary care in the next 3-5 days to discuss plan and options This note was dictated using [employer] voice recognition software please call with any questions on syntax or kasey.
--- NOTE | 2017-08-22 13:18 | US ---
Pelvis Non OB Comp, Transvaginal Non OB HISTORY: vaginal bleeding Transabdominal and transvaginal technique were used during the exam. FINDINGS: The uterus appears within normal limits in size and echogenicity measuring 8.1 x 4.6 x 4.5 cm. No point hope ira rine mass is identified. Endometrial stripe is not thickened measuring 4.4 mm. There is a small amoun t of fluid noted at the level of the cervix.. Both ovaries are within normal limits in size and echogenicity. The right ovary measures 2.6 x 2.2 x 1.6 cm. Left ovary measures 2.9 x 2.2 x 1.5 cm. There is a small cyst or dominant follicle on the ri ght ovary measuring 1.6 x 1.4 x 1.1 cm. No other adnexal or other pelvic mass or abnormal fluid colle ctions are seen. There is good color Doppler blood flow to each ovary. A small amount of free fluid i s seen in the pelvic cul-de-sac. There is also a small amount of free fluid adjacent to the fundus of the uterus. IMPRESSION: 1. A small amount of fluid can be seen in the endocervical canal. No other uterine abnormality is erich ntified. Retained products of conception are not seen. 2. Small cyst or dominant follicle on the right ovary measures 1.6 cm in greatest diameter. 3. There is a small amount of free fluid in the pelvic cul-de-sac and adjacent to the fundus of the u terus. 4. No other sonographic abnormality of the pelvis is identified. Preliminary report was given to Officer in the Emergency Department at the time of the exam.
== END 2017-08-22 13:31 | disposition home or self-care (01) ==
LOC: JP.ED 11:00
DX: N93.9 Abnormal uterine and vaginal bleeding, unspecified (principal); F17.210 Nicotine dependence, cigarettes, uncomplicated; Z79.899 Other long term (current) drug therapy; Z88.1 Allergy status to other antibiotic agents
CPT/HCPCS: 36415; 76830; 76830-26; 76856; 76856-26; 80053; 81001; 81025; 85025; 85610; 85730; 99284; 99284-25

== ENCOUNTER 2018-02-25 17:37 | Emergency (ER) | payer SELFPAY ==
[2018-02-25 17:58] VITALS: BP 123/78
[2018-02-25] MEDS ORDERED: Doxycycline 100 MG Cap PO ONE (18:43)
--- NOTE | 2018-02-25 19:28 | EDM.PDOC ---
ED HPI GENERAL MEDICAL PROBLEM - General Chief Complaint: Skin Complaint Stated Complaint: INSECT BIITE ON LEFT FOREARM Time Seen by Provider: 02/25/18 18:37 Source of Information: Reports: Patient History Limitations: Reports: No Limitations - History of Present Illness INITIAL COMMENTS - FREE TEXT/NARRATIVE: This patient got bit by some kind of insect a few days ago. today there is a red area about 4 cm in diameter and she thinks maybe it was a tick. 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: Reports: Other [employer] History: BOO-04/08/2017 Musculoskeletal History: Reports: Fracture Other Musculoskeletal History: fractured shoulder x's 3 Psychiatric History: Reports: Anxiety, Panic Attack Hematologic History: Reports: Other (See Below) Other Hematologic History: low WBC with unknown cause Dermatologic History: Reports: Other (See Below) Other Dermatologic History: PUPP - Infectious Disease History Infectious Disease History: Reports: Chicken Pox - Past Surgical History HEENT Surgical History: Reports: None Respiratory Surgical History: Reports: None Musculoskeletal Surgical History: Reports: None Social & Family History - Family History Family Medical History: Noncontributory - Tobacco Use Smoking Status *Q: Never Smoker - Caffeine Use Caffeine Use: Reports: None Other Caffeine Use: 1 cup daily - Recreational Drug Use Recreational Drug Use: No ED ROS GENERAL - Review of Systems Review Of Systems: ROS reveals no pertinent complaints other than HPI. ED EXAM, SKIN/RASH Exam: See Below Exam Limited By: No Limitations General Appearance: Alert, WD/WN Skin: Other (Right forearm, distal anterior. A red area about 4-5 cm diam with central ulceration about 2 mm. Possibly tick bite.) Course - Vital Signs Last Recorded V/S: Last Vital Signs Temp 36.8 C 02/25/18 17:56 Pulse 90 02/25/18 17:56 Resp 16 02/25/18 17:56 BP 123/78 02/25/18 17:56 Pulse Ox 97 02/25/18 17:56 - Orders/Labs/Meds Meds: Medications Discontinued Medications Generic Name Dose Route Start Last Admin Trade Name Karl PRN Reason Stop Dose Admin Doxycycline Hyclate 100 mg 02/25/18 18:43 02/25/18 18:55 Vibramycin PO 02/25/18 18:44 100 mg ONETIME ONE Administration - Re-Assessments/Exams Free Text/Narrative Re-Assessment/Exam: 02/25/18 19:27 received doxycycline 100 mg po Departure - Departure Time of Disposition: 19:27 Disposition: Home, Self-Care 01 Condition: Fair Clinical Impression: Tick bite - Discharge Information Referrals: Gayla Valladares CNM [Primary Care Provider] - Additional Instructions: Take doxycycline 100 mg twice daily for 10 days for possible tick bit that could lead to lyme disease.
== END 2018-02-25 19:43 | disposition home or self-care (01) ==
LOC: JP.ED 17:37
DX: S50.861A Insect bite (nonvenomous) of right forearm, initial encounter (principal); Z88.1 Allergy status to other antibiotic agents; W57.XXXA Bitten or stung by nonvenomous insect and other nonvenomous arthropods, initial encounter
CPT/HCPCS: 99282; A9270

== ENCOUNTER 2018-11-27 23:04 | Emergency (ER) | payer MEDICAID ==
[2018-11-27 23:25] VITALS: BP 137/69
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
[2018-11-27] MEDS: LORazepam 2 MG/ML SDV IVPUSH ONE (23:34)
== END 2018-11-28 00:44 | disposition home or self-care (01) ==
LOC: JP.ED 23:04
DX: F41.0 Panic disorder [episodic paroxysmal anxiety] (principal); J45.909 Unspecified asthma, uncomplicated; F17.210 Nicotine dependence, cigarettes, uncomplicated; Z88.1 Allergy status to other antibiotic agents
CPT/HCPCS: 96374; 99283; J2060

== ENCOUNTER 2019-05-26 14:03 | Emergency (ER) | payer MEDICAID ==
[2019-05-26 14:24] VITALS: BP 112/68; PULSE 90
[2019-05-26] MEDS ORDERED: Sodium Chloride 0.9% 10 ML Syringe FLUSH PRN (14:33)
[2019-05-26] MEDS ORDERED: Sodium Chloride 0.9% 1,000 ML IV ONE (14:34)
[2019-05-26] MEDS ORDERED: Ketorolac 30 MG/ML SDV IVPUSH ONE (14:34)
--- NOTE | 2019-05-26 14:43 | EDM.PDOC ---
ED HPI GENERAL MEDICAL PROBLEM - General Chief Complaint: Abdominal Pain Stated Complaint: PAIN IN STOMACH AREA Time Seen by Provider: 05/26/19 14:07 Source of Information: Reports: Patient History Limitations: Reports: No Limitations - History of Present Illness INITIAL COMMENTS - FREE TEXT/NARRATIVE: Liliana is a 24 year old female, presents to the ED today with c/o lower right and left abdominal pain since yesterday morning with associated abdominal bloating. Patient has had normal BM's, pain is aching in nature, denies any fever/chills/back pain/nausea or vomiting, no blood in stool. LNMP earlier this month, patient has copper IUD. Took ibuprofen last night for pain which did help some, laying flat makes symptoms worse, denies any dysuria or other urinary symptoms. Patient denies any abdominal surgical hx. Onset: Gradual Duration: Day(s): (2) - Related Data Allergies Allergy/AdvReac Type Severity Reaction Status Date / Time amoxicillin Allergy Hives Verified 05/26/19 14:13 Home Meds: Home Meds Albuterol [Ventolin HFA] 2 puff INH BID 08/18/16 [History] Montelukast Sodium [Singulair] 1 tab PO BEDTIME 11/27/18 [History] ALPRAZolam [Alprazolam] 05/26/19 [History] Naltrexone 05/26/19 [History] Prazosin [Minpress] 05/26/19 [History] Sertraline [Zoloft] 05/26/19 [History] metroNIDAZOLE [Metronidazole] 05/26/19 [History] Past Medical History HEENT History: Reports: Allergic Rhinitis 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: Reports: Asthma 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 History: BOO-04/08/2017 Musculoskeletal History: Reports: Fracture Other Musculoskeletal History: fractured shoulder x's 3 Psychiatric History: Reports: Anxiety, Panic Attack Hematologic History: Reports: Other (See Below) Other Hematologic History: low WBC with unknown cause Dermatologic History: Reports: Other (See Below) Other Dermatologic History: PUPP - Infectious Disease History Infectious Disease History: Reports: Chicken Pox - Past Surgical History HEENT Surgical History: Reports: None Respiratory Surgical History: Reports: None Musculoskeletal Surgical History: Reports: None Social & Family History - Family History Family Medical History: Noncontributory - Tobacco Use Smoking Status *Q: Current Some Day Smoker Years of Tobacco use: 2 Packs/Tins Daily: 0.1 - Caffeine Use Caffeine Use: Reports: None Other Caffeine Use: 1 cup daily ED ROS GENERAL - Review of Systems Review Of Systems: ROS reveals no pertinent complaints other than HPI. ED EXAM, GI/ABD - Physical Exam Exam: See Below Exam Limited By: No Limitations General Appearance: Alert, WD/WN, No Apparent Distress Neck: Normal Inspection, Supple, Non-Tender Respiratory/Chest: No Respiratory Distress, Lungs Clear Cardiovascular: Normal Peripheral Pulses, Regular Rate, Rhythm GI/Abdominal Exam: Soft, Distended, Other (No hepatosplenomagaly, bowel sounds normal, tender to RLQ at mcburney's point and LLQ) Back Exam: Normal Inspection Extremities: Normal Inspection Neurological: Alert, Oriented, CN II-XII Intact Psychiatric: Normal Affect, Normal Mood Skin Exam: Warm, Dry, Intact Lymphatic: No Adenopathy Course - Vital Signs Last Recorded V/S: Last Vital Signs Temp 36.3 C 05/26/19 14:22 Pulse 90 05/26/19 14:22 Resp 14 05/26/19 14:22 BP 112/68 05/26/19 14:22 Pulse Ox 97 05/26/19 14:22 Liliana is an otherwise healthy 24 year old female who presents to the ED today with c/o bilateral lower abdominal pain since yesterday morning. Please refer to HPI and focused exam. Patient arrives here hemodynamically stable and afebrile. This may be viral in etiology. Patient does have tenderness over McBurney's point but has no fever or nausea/vomiting to indicate appendicitis so I feel this is unlikely, may have an ileus with her mild distention but again has had no vomiting. With LLQ pain could be related to diverticulitis although again given patient's age I do not feel this is high likelihood. Patient did later mention she did have sexual intercourse which was "quite rough " which was prior to onset of symptoms. Patient denies any vaginal pain/ discharge or lower mid pelvic pain. PIV established, patient was given IV fluids and Toradol. Blood work obtained and CT scan was done of abdomen and pelvis. Likely ruptured hemorrhagic . ovarian cyst with free fluid in pelvis on CT. Urine with early UTI. Remaining blood work reassuring, patient dose have mild anemia. Discussed with patient, Ibuprofen/Tylenol for pain as needed. Macrobid pending UC. Reasons to return discussed, patient agreeable and discharged in stable condition. - Orders/Labs/Meds Orders: Active Orders 24 hr Category Date Time Status Peripheral IV Care [RC] . DIRECTED Care 05/26/19 14:33 Active Iopamidol [Isovue-300 (61%)] Med 05/26/19 15:45 Active 92 ml IV . DIRECTED Sodium Chloride 0.9% [Normal Saline] 70 ml Med 05/26/19 15:45 Active IV ASDIRECTED Sodium Chloride 0.9% [Saline Flush] Med 05/26/19 14:33 Active 10 ml FLUSH ASDIRECTED PRN Peripheral IV Insertion Adult [OM.PC] Routine Oth 05/26/19 14:33 Ordered Medication Orders Sodium Chloride (Normal Saline) 70 mls @ 3 mls/sec IV ASDIRECTED DIANNE Last Admin: 05/26/19 15:49 Dose: 3 mls/sec Iopamidol (Isovue-300 (61%)) 92 ml IV . DIRECTED DIANEN Last Admin: 05/26/19 15:49 Dose: 100 ml Sodium Chloride (Saline Flush) 10 ml FLUSH ASDIRECTED PRN PRN Reason: Keep Vein Open Last Admin: 05/26/19 15:02 Dose: 10 ml Labs: Laboratory Tests 05/26/19 05/26/19 05/26/19 Range/Units 14:45 14:45 14:45 WBC 8.9 (4.5-11.0) K/uL RBC 4.34 (3.30-5.50) M/uL Hgb 10.6 L D (12.0-15.0) g/dL Hct 34.6 L (36.0-48.0) % MCV 80 (80-98) fL MCH 24 L (27-31) pg MCHC 31 L (32-36) % Plt Count 400 (150-400) K/uL Neut % (Auto) 44 (36-66) % Lymph % (Auto) 27 (24-44) % [place] % (Auto) 6 (2-6) % Eos % (Auto) 22 H (2-4) % Baso % (Auto) 1 (0-1) % Sodium 139 L (140-148) mmol/L Potassium 3.9 (3.6-5.2) mmol/L Chloride 103 (100-108) mmol/L Carbon Dioxide 27 (21-32) mmol/L Anion Gap 12.9 (5.0-14.0) mmol/L BUN 12 (7-18) mg/dL Creatinine 0.7 (0.6-1.0) mg/dL Est Cr Clr Drug Dosing 99.70 mL/min Estimated GFR (MDRD) > 60 (>60) Glucose 77 (74-106) mg/dL Calcium 9.1 (8.5-10.1) mg/dL Total Bilirubin 0.3 (0.2-1.0) mg/dL AST 16 (15-37) U/L ALT 24 (12-78) U/L Alkaline Phosphatase 80 (46-116) U/L C-Reactive Protein 0.22 (0.0-0.3) mg/dL Total Protein 7.6 (6.4-8.2) g/dL Albumin 3.7 (3.4-5.0) g/dL Globulin 3.9 H (2.3-3.5) g/dL Albumin/Globulin Ratio 1.0 L (1.2-2.2) Lipase 87 (73-393) U/L Urine Color (YELLOW) Urine Appearance (CLEAR) Urine pH (5.0-8.0) Ur Specific [place] (1.008-1.030) Urine Protein (NEGATIVE) mg/dL Urine Glucose (UA) (NEGATIVE) mg/dL Urine Ketones (NEGATIVE) mg/dL Urine Occult Blood (NEGATIVE) Urine Nitrite (NEGATIVE) Urine Bilirubin (NEGATIVE) Urine Urobilinogen (0.2-1.0) EU/dL Ur Leukocyte Esterase (NEGATIVE) Urine RBC (0-5) Urine WBC (0-5) Ur Epithelial Cells Amorphous Sediment Urine Bacteria Urine Mucus Urine HCG, Qual 05/26/19 05/26/19 Range/Units 15:13 15:13 WBC (4.5-11.0) K/uL RBC (3.30-5.50) M/uL Hgb (12.0-15.0) g/dL Hct (36.0-48.0) % MCV (80-98) fL MCH (27-31) pg MCHC (32-36) % Plt Count (150-400) K/uL Neut % (Auto) (36-66) % Lymph % (Auto) (24-44) % [place] % (Auto) (2-6) % Eos % (Auto) (2-4) % Baso % (Auto) (0-1) % Sodium (140-148) mmol/L Potassium (3.6-5.2) mmol/L Chloride (100-108) mmol/L Carbon Dioxide (21-32) mmol/L Anion Gap (5.0-14.0) mmol/L BUN (7-18) mg/dL Creatinine (0.6-1.0) mg/dL Est Cr Clr Drug Dosing mL/min Estimated GFR (MDRD) (>60) Glucose (74-106) mg/dL Calcium (8.5-10.1) mg/dL Total Bilirubin (0.2-1.0) mg/dL AST (15-37) U/L ALT (12-78) U/L Alkaline Phosphatase (46-116) U/L C-Reactive Protein (0.0-0.3) mg/dL Total Protein (6.4-8.2) g/dL Albumin (3.4-5.0) g/dL Globulin (2.3-3.5) g/dL Albumin/Globulin Ratio (1.2-2.2) Lipase (73-393) U/L Urine Color Yellow (YELLOW) Urine Appearance Cloudy A (CLEAR) Urine pH 8.0 (5.0-8.0) Ur Specific [place] 1.020 (1.008-1.030) Urine Protein Negative (NEGATIVE) mg/dL Urine Glucose (UA) Negative (NEGATIVE) mg/dL Urine Ketones Negative (NEGATIVE) mg/dL Urine Occult Blood Small H (NEGATIVE) Urine Nitrite Negative (NEGATIVE) Urine Bilirubin Negative (NEGATIVE) Urine Urobilinogen 0.2 (0.2-1.0) EU/dL Ur Leukocyte Esterase Small H (NEGATIVE) Urine RBC 0-5 (0-5) Urine WBC 5-10 H (0-5) Ur Epithelial Cells Moderate Amorphous Sediment Not seen Urine Bacteria Not seen Urine Mucus Few Urine HCG, Qual Negative Meds: Medications Generic Name Dose Route Start Last Admin Trade Name Freq PRN Reason Stop Dose Admin Sodium Chloride 70 mls @ 3 mls/sec 05/26/19 15:45 05/26/19 15:49 Normal Saline IV 3 mls/sec ASDIRECTED DIANNE Administration Iopamidol 92 ml 05/26/19 15:45 05/26/19 15:49 Isovue-300 (61%) IV 100 ml . DIRECTED DIANNE Administration Sodium Chloride 10 ml 05/26/19 14:33 05/26/19 15:02 Saline Flush FLUSH 10 ml ASDIRECTED PRN Administration Keep Vein Open Discontinued Medications Generic Name Dose Route Start Last Admin Trade Name Freq PRN Reason Stop Dose Admin Sodium Chloride 1,000 mls @ 999 mls/hr 05/26/19 14:34 05/26/19 15:02 Normal Saline IV 05/26/19 15:34 999 mls/hr .BOLUS ONE Administration Ketorolac Tromethamine 30 mg 05/26/19 14:34 05/26/19 15:02 Toradol IVPUSH 05/26/19 14:35 30 mg ONETIME ONE Administration Sodium Chloride 10 ml 05/26/19 15:31 05/26/19 15:49 Saline Flush FLUSH 05/26/19 15:32 10 ml ONETIME ONE Administration Departure - Departure Time of Disposition: 17:45 Disposition: Home, Self-Care 01 Condition: Good Clinical Impression: Urinary tract infection in female, Ruptured cyst of ovary - Discharge Information Instructions: Urinary Tract Infection, Adult, [id number], Ovarian Cyst, Easy- to-Read Referrals: Gayla Valladares CNM [Primary Care Provider] - Forms: ED Department Discharge Additional Instructions: Tylenol or Ibuprofen for pain. Stay well hydrated. Start Macrobid tonight. Follow up in clinic as needed. Return here with any worsening symptoms or concerns - My Orders Last 24 Hours: My Active Orders 05/26/19 14:33 Peripheral IV Care [RC] . DIRECTED Sodium Chloride 0.9% [Saline Flush] 10 ml FLUSH ASDIRECTED PRN Peripheral IV Insertion Adult [OM.PC] Routine 05/26/19 15:45 Iopamidol [Isovue-300 (61%)] 92 ml IV . DIRECTED Sodium Chloride 0.9% [Normal Saline] 70 ml IV ASDIRECTED - Assessment/Plan Last 24 Hours: My Active Orders 05/26/19 14:33 Peripheral IV Care [RC] . DIRECTED Sodium Chloride 0.9% [Saline Flush] 10 ml FLUSH ASDIRECTED PRN Peripheral IV Insertion Adult [OM.PC] Routine 05/26/19 15:45 Iopamidol [Isovue-300 (61%)] 92 ml IV . DIRECTED Sodium Chloride 0.9% [Normal Saline] 70 ml IV ASDIRECTED
[2019-05-26] MEDS ORDERED: Sodium Chloride 0.9% 10 ML Syringe FLUSH ONE (15:31)
[2019-05-26] MEDS ORDERED: Iopamidol 612 MG/ML 100 ML Bottle IV SCH (15:45)
--- NOTE | 2019-05-26 16:46 | CRLCT ---
INDICATION: Abdominal pain, bilateral lower quadrant. TECHNIQUE: CT abdomen and pelvis acquired with 92 mL of Isovue-300 IV contrast. COMPARISON: None. FINDINGS: Lower chest: Unremarkable. Liver: Unremarkable. Spleen: Unremarkable. Pancreas: Unremarkable. Gallbladder and bile ducts: Unremarkable. Kidneys: Unremarkable. Adrenal glands: Unremarkable. GI tract: No bowel obstruction or focal inflammatory changes involving the GI tract. Pelvic free-fluid mildly extends into the abdomen and is adjacent to the appendix. The appendix is otherwise normal in appearance. No free intraperitoneal gas. Vascular structures: Unremarkable. Lymph nodes: Unremarkable. Pelvic Organs: Intrauterine device appears appropriately positioned. There is a slightly irregular peripherally enhancing lesion in the right ovary which measures up to 3.5 cm. There is a small to moderate amount of pelvic free fluid which demonstrates mild increased density. Left adnexal region as imaged is unremarkable. Bladder is unremarkable. Bones: No acute abnormality. IMPRESSION: 1. Irregular peripherally enhancing lesion in the right ovary measuring up to 3.5 cm with small to moderate amount of pelvic free fluid demonstrating mild increased density, suggestive of ruptured hemorrhagic ovarian cyst. Additional etiologies such as ectopic are deemed less likely given the normal appearing intrauterine device. Continued clinical follow-up recommended as indicated. 2. Remainder of the CT of the abdomen and pelvis is unremarkable. Dictated by Lawrence Jacobs MD @ 05/26/2019 4:43:52 PM Please note that all CT scans at this facility use dose modulation, iterative reconstruction, and/or weight-based dosing when appropriate to reduce radiation dose to as low as reasonably achievable. Dictated by: Lawrence Jacobs MD @ 05/26/2019 16:44:26 (Electronically Signed)
== END 2019-05-26 17:22 | disposition home or self-care (01) ==
LOC: JP.ED 14:03
DX: N39.0 Urinary tract infection, site not specified (principal); N83.201 Unspecified ovarian cyst, right side; J45.909 Unspecified asthma, uncomplicated; F17.210 Nicotine dependence, cigarettes, uncomplicated; Z88.0 Allergy status to penicillin; Z79.899 Other long term (current) drug therapy
CPT/HCPCS: 36415; 74177; 80053; 81001; 81025; 83690; 85025; 86140; 87086; 96361; 96374; 99284-25; J1885; J7030; Q9967

== ENCOUNTER 2020-01-20 14:19 | Emergency (ER) | payer MEDICAID ==
[2020-01-20] MEDS ORDERED: LORazepam 2 MG/ML SDV IM ONE (14:41)
--- NOTE | 2020-01-20 14:54 | EDM.PDOC ---
<StuWanda M - Last Filed: 01/20/20 17:46> ED HPI GENERAL MEDICAL PROBLEM - General Chief Complaint: Chest Pain Stated Complaint: CHEST PRESSURE, SOB Time Seen by Provider: 01/20/20 14:30 Source of Information: Reports: Patient History Limitations: Reports: No Limitations - History of Present Illness INITIAL COMMENTS - FREE TEXT/NARRATIVE: 25 year old female presents with CP/pressure from panic/anxiety last 2-[address] No ectopy. Pt does see psychiatry Q 2-3 weeks. Does not have a maintenance anti-anxiety medication "that works". Does have RX for 1 mg PO Xanax for break through attacks took 30 minutes prior to ER visit. Pt does have mild asthma. Singulare Q HS and Albuterol Q day as needed for control. Pt is hyperventilating with carpal spasms. ABG ordered on RA. 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) (Pt took 1mg PO Xanax 45 minutes ago for panic/anxiety attack) Middle Chest Pain Score (Numeric/FACES): 2 - Related Data Allergies Allergy/AdvReac Type Severity Reaction Status Date / Time amoxicillin Allergy Hives Verified 01/20/20 14:36 Home Meds: Home Meds Albuterol [Ventolin HFA] 2 puff INH BID 08/18/16 [History] Montelukast Sodium [Singulair] 1 tab PO BEDTIME 11/27/18 [History] ALPRAZolam [Alprazolam] 1 mg PO ASDIRECTED 05/26/19 [History] Prazosin [Minpress] 1 tab PO ASDIRECTED 05/26/19 [History] Zonisamide 1 tab PO BEDTIME 01/20/20 [History] Past Medical History HEENT History: Reports: Allergic Rhinitis 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: Reports: Asthma 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: Reports: Other 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: BOO-04/08/2017 Musculoskeletal History: Reports: Fracture Other Musculoskeletal History: fractured shoulder x's 3 Psychiatric History: Reports: Anxiety, Panic Attack Hematologic History: Reports: Other (See Below) Other Hematologic History: low WBC with unknown cause Dermatologic History: Reports: Other (See Below) Other Dermatologic History: PUPP - Infectious Disease History Infectious Disease History: Reports: Chicken Pox - Past Surgical History HEENT Surgical History: Reports: None Respiratory Surgical History: Reports: None Musculoskeletal Surgical History: Reports: None Social & Family History - Family History Family Medical History: Noncontributory - Caffeine Use Caffeine Use: Reports: Soda Other Caffeine Use: 1 cup daily - Recreational Drug Use Recreational Drug Use: No ED ROS GENERAL - Review of Systems Constitutional: Reports: Other (Panic and anxiety s/s. SOB ) HEENT: Reports: No Symptoms Respiratory: Reports: Shortness of Breath, Wheezing (Expiratory wheezes BL upper lungs. Very minimal. ) Cardiovascular: Reports: Other (C/o chest pressure from anxiety. Pt is hypocapneic from hyper ventilation. ABG ordered) Endocrine: Reports: No Symptoms GI/Abdominal: Reports: No Symptoms : Reports: No Symptoms Musculoskeletal: Reports: No Symptoms Skin: Reports: No Symptoms Neurological: Reports: Headache, Numbness (numbness is from hyperventilation due to panic and anxiety) Psychiatric: Reports: Anxiety Hematologic/Lymphatic: Reports: No Symptoms Immunologic: Reports: No Symptoms ED EXAM, GENERAL - Physical Exam Exam Limited By: No Limitations General Appearance: Anxious, Moderate Distress Head: Atraumatic Respiratory/Chest: Wheezing (BL upper lobe exp wheezes. Mild) Cardiovascular: Regular Rate, Rhythm, Tachycardia Extremities: Other (BL hands carpal spasms from hyperventilation or hypocapnic. ABG ordered. ) Neurological: Alert, Oriented Psychiatric: Anxious Skin Exam: Warm, Dry Course - Vital Signs Last Recorded V/S: Last Vital Signs Temp Pulse 79 01/20/20 16:44 Resp 21 H 01/20/20 16:44 BP 101/55 L 01/20/20 16:44 Pulse Ox 95 01/20/20 16:44 - Orders/Labs/Meds Orders: Active Orders 24 hr Category Date Time Status Peripheral IV Care [RC] . DIRECTED Care 01/20/20 15:14 Active Peripheral IV Insertion Adult [OM.PC] Routine Oth 01/20/20 15:14 Ordered EKG 12 Lead [EK] Routine Ther 01/20/20 14:45 Ordered Labs: Laboratory Tests 01/20/20 Range/Units 14:43 Puncture Site Lt radial ABG pH 7.661 H* (7.350-7.450) ABG pCO2 18.5 L* (35.0-42.0) mmHg ABG pO2 115.0 H (75.0-100.0) mmHg ABG HCO3 21.2 L (22.0-26.0) mmol/L ABG Total CO2 18.6 L (21.0-25.0) mmol/L ABG O2 Saturation 99.1 H (95.0-98.0) % ABG O2 Content 15.6 (15.0-23.0) %vol ABG Base Excess 1.9 mm/L ABG Hemoglobin 11.3 L (12.0-16.0) g/dL ABG Oxyhemoglobin 96.9 % ABG Carboxyhemoglobin 1.2 (0.0-1.6) % ABG Methemoglobin 1.0 % Favio Test Passed O2 Delivery Device Room air Oxygen Flow Rate L Meds: Medications Discontinued Medications Generic Name Dose Route Start Last Admin Trade Name Freq PRN Reason Stop Dose Admin Lorazepam 1 mg 01/20/20 14:41 01/20/20 14:54 Ativan IM 01/20/20 14:42 1 mg ONETIME ONE Administration Lorazepam 1 mg 01/20/20 15:15 01/20/20 15:36 Ativan IVPUSH 01/20/20 15:16 1 mg ONETIME ONE Administration Sodium Chloride 10 ml 01/20/20 15:14 01/20/20 15:36 Saline Flush FLUSH 10 ml ASDIRECTED PRN Administration Keep Vein Open - Re-Assessments/Exams Free Text/Narrative Re-Assessment/Exam: 01/20/20 15:07 ABG indicates Respiratory alkalosis. PH 7.66 and Co2 18.5. Paper bag breathing and 1 mg IM Ativan. Continue to monitor. 01/20/20 15:42 Pt doing much better after 1 mg IVP Ativan. Carpal spasms resolving 01/20/20 17:46 Pt is much more relaxed and feels better. Discussed the use of a brown bag to reduce the chances of hypocapnia if another anxiety/panic attack. 01/20/20 17:48 Discussed to seek medical care if medical condition changes. Agreed to follow up with PCP and psychiatrist. Departure - Departure Disposition: Home, Self-Care 01 Condition: Good Clinical Impression: Anxiety, Hyperventilation syndrome - Discharge Information *PRESCRIPTION DRUG MONITORING PROGRAM REVIEWED*: Not Applicable *COPY OF PRESCRIPTION DRUG MONITORING REPORT IN PATIENT KATHRIN: Not Applicable Instructions: Hyperventilation Referrals: PCP,None [Primary Care Provider] - Forms: ED Department Discharge Care Plan Goals: Follow up with PCP and Psychiatrist as needed. As discussed, use brown paper bag at the first sign of panic attack. Take Xanax as directed. Seek medical attention as soon as indicated. Sepsis Event Note (ED) - Evaluation Sepsis Screening Result: No Definite Risk - Focused Exam Vital Signs: Vital Signs Pulse Resp BP Pulse Ox 01/20/20 16:44 79 21 H 101/55 L 95 01/20/20 16:04 82 23 H 120/64 96 01/20/20 15:38 84 13 122/68 99 01/20/20 15:05 101 H 17 102/51 L 99 01/20/20 14:45 102 H 19 116/78 98 01/20/20 14:25 116 H 16 125/78 100 <Michael Tenorio - Last Filed: 01/20/20 18:32> ED ROS GENERAL - Review of Systems Review Of Systems: See Below ED EXAM, GENERAL - Physical Exam Exam: See Below Departure - Departure Time of Disposition: 18:14
[2020-01-20] MEDS ORDERED: Sodium Chloride 0.9% 10 ML Syringe FLUSH PRN (15:14)
[2020-01-20] MEDS ORDERED: LORazepam 2 MG/ML SDV IVPUSH ONE (15:15)
[2020-01-20 17:18] VITALS: BP 101/55; PULSE 79
== END 2020-01-20 18:15 | disposition home or self-care (01) ==
LOC: JP.ED 14:19
DX: F41.9 Anxiety disorder, unspecified (principal); F45.8 Other somatoform disorders; J45.909 Unspecified asthma, uncomplicated; Z88.1 Allergy status to other antibiotic agents; Z79.899 Other long term (current) drug therapy
CPT/HCPCS: 36600; 82803; 93005; 96372; 96374; 99285; J2060

== ENCOUNTER 2020-03-09 16:08 | Emergency (ER) | payer MEDICAID ==
--- NOTE | 2020-03-09 16:37 | EDM.PDOC ---
<Ewelina Santana - Last Filed: 03/09/20 17:25> ED HPI GENERAL MEDICAL PROBLEM - General Chief Complaint: Gastrointestinal Problem Stated Complaint: vomiting & weak Time Seen by Provider: 03/09/20 16:37 Source of Information: Reports: Patient History Limitations: Reports: No Limitations - History of Present Illness INITIAL COMMENTS - FREE TEXT/NARRATIVE: pt arrived with a history of 2 days of vomiting. The last 36 hours she has not been holding water down. She has not had a fever. She does not have abdomanal pain. She does not have diarrhea. Onset: Other (last 2 days. ) Duration: Hour(s): Location: Reports: Abdomen, Generalized Associated Symptoms: Reports: Nausea/Vomiting, Weakness, Other (pt was so weak she could bearly stand up) - Related Data Allergies Allergy/AdvReac Type Severity Reaction Status Date / Time amoxicillin Allergy Hives Verified 03/09/20 16:38 Home Meds: Home Meds Albuterol [Ventolin HFA] 2 puff INH BID 08/18/16 [History] Montelukast Sodium [Singulair] 1 tab PO BEDTIME 11/27/18 [History] ALPRAZolam [Alprazolam] 1 mg PO ASDIRECTED 05/26/19 [History] Prazosin [Minpress] 1 tab PO ASDIRECTED 05/26/19 [History] Past Medical History HEENT History: Reports: Allergic Rhinitis 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: Reports: Asthma TEAM GUIDE History: Reports: Other TEAM GUIDE History: BOO-04/08/2017 Musculoskeletal History: Reports: Fracture Other Musculoskeletal History: fractured shoulder x's 3 Psychiatric History: Reports: Anxiety, Panic Attack Hematologic History: Reports: Other (See Below) Other Hematologic History: low WBC with unknown cause Dermatologic History: Reports: Other (See Below) Other Dermatologic History: PUPP - Infectious Disease History Infectious Disease History: Reports: Chicken Pox - Past Surgical History HEENT Surgical History: Reports: None Respiratory Surgical History: Reports: None Musculoskeletal Surgical History: Reports: None Social & Family History - Family History Family Medical History: Noncontributory - Caffeine Use Caffeine Use: Reports: Soda Other Caffeine Use: 1 cup daily ED ROS GENERAL - Review of Systems Review Of Systems: See Below Constitutional: Reports: Weakness, Fatigue HEENT: Reports: No Symptoms Respiratory: Reports: No Symptoms Cardiovascular: Reports: No Symptoms, Lightheadedness Endocrine: Reports: No Symptoms GI/Abdominal: Reports: Decreased Appetite, Nausea, Vomiting : Reports: No Symptoms Musculoskeletal: Reports: No Symptoms Skin: Reports: No Symptoms Neurological: Reports: No Symptoms Psychiatric: Reports: Anxiety ED EXAM, GI/ABD - Physical Exam Exam: See Below Text/Narrative:: pt arrived with a history of 2 days of vomiting. In the last 36 hours she was not able to hold water down. She is feeling very weak and lite headed. Exam Limited By: No Limitations General Appearance: Alert, Anxious, Mild Distress, Other (pupils are equal and reactive. ) Ears: Normal TMs Nose: Normal Inspection Throat/Mouth: Normal Inspection Head: Atraumatic Neck: Normal Inspection Respiratory/Chest: No Respiratory Distress Cardiovascular: Regular Rate, Rhythm, Tachycardia GI/Abdominal Exam: Soft, Non-Tender (Female) Exam: Deferred Rectal (Female) Exam: Deferred Back Exam: Normal Inspection Extremities: Normal Inspection Neurological: Alert, Oriented, Normal Cognition Psychiatric: Anxious Course - Re-Assessments/Exams Free Text/Narrative Re-Assessment/Exam: 03/09/20 17:04 pt has a drug screen that is positive for marajauna. Her hg is good. 03/09/20 17:05 03/09/20 17:25 pt was given ativan .5 iv and zoforan 4 mg iv. she is feeling better. She will be given 2 liters of fluid. Pt states that she does not use marajuna on a regular basis. 03/09/20 17:26 Departure - Departure Disposition: Home, Self-Care 01 Clinical Impression: Anxiety, Hyperventilation syndrome Nausea & vomiting Qualifiers: Vomiting type: unspecified Vomiting Intractability: non-intractable Qualified Code(s): R11.2 - Nausea with vomiting, unspecified - Discharge Information Referrals: Gayla Valladares CNM [Primary Care Provider] - Forms: ED Department Discharge Additional Instructions: sips of fluid returning to normal hydration advance diet slowly as tolerated rest <White,Charleen - Last Filed: 03/09/20 20:13> Course - Vital Signs Last Recorded V/S: Last Vital Signs Temp 36.6 C 03/09/20 16:37 Pulse 92 03/09/20 16:54 Resp 15 03/09/20 16:37 BP 112/67 03/09/20 16:54 Pulse Ox 100 03/09/20 16:54 - Orders/Labs/Meds Orders: Active Orders 24 hr Category Date Time Status Sodium Chloride 0.9% [Normal Saline] 1,000 ml Med 03/09/20 16:45 Active IV ASDIRECTED Sodium Chloride 0.9% [Normal Saline] 1,000 ml Med 03/09/20 17:30 Active IV ASDIRECTED Medication Orders Sodium Chloride (Normal Saline) 1,000 mls @ 999 mls/hr IV ASDIRECTED DIANNE Last Admin: 03/09/20 16:58 Dose: 999 mls/hr Documented by: ROSSY Sodium Chloride (Normal Saline) 1,000 mls @ 999 mls/hr IV ASDIRECTED DIANNE Last Admin: 03/09/20 19:03 Dose: 999 mls/hr Documented by: ROSSY Labs: Laboratory Tests 03/09/20 03/09/20 03/09/20 Range/Units 16:50 16:50 16:55 WBC 13.1 H (4.5-11.0) K/uL RBC 4.88 (3.30-5.50) M/uL Hgb 12.5 (12.0-15.0) g/dL Hct 38.7 (36.0-48.0) % MCV 79 L (80-98) fL MCH 26 L (27-31) pg MCHC 32 (32-36) % Plt Count 493 H (150-400) K/uL Neut % (Auto) 79 H (36-66) % Lymph % (Auto) 14 L (24-44) % [place] % (Auto) 4 (2-6) % Eos % (Auto) 4 (2-4) % Baso % (Auto) 0 (0-1) % Sodium 142 (140-148) mmol/L Potassium 3.9 (3.6-5.2) mmol/L Chloride 104 (100-108) mmol/L Carbon Dioxide 22 (21-32) mmol/L Anion Gap 15.8 H (5.0-14.0) mmol/L BUN 12 (7-18) mg/dL Creatinine 0.9 (0.6-1.0) mg/dL Est Cr Clr Drug Dosing 76.89 mL/min Estimated GFR (MDRD) > 60 (>60) Glucose 88 (74-106) mg/dL Calcium 9.0 (8.5-10.1) mg/dL Total Bilirubin 0.2 (0.2-1.0) mg/dL AST 23 (15-37) U/L ALT 31 (12-78) U/L Alkaline Phosphatase 92 (46-116) U/L Total Protein 8.3 H (6.4-8.2) g/dL Albumin 4.2 (3.4-5.0) g/dL Globulin 4.1 H (2.3-3.5) g/dL Albumin/Globulin Ratio 1.0 L (1.2-2.2) Urine Color Yellow (YELLOW) Urine Appearance Slightly cloudy A (CLEAR) Urine pH 7.0 (5.0-8.0) Ur Specific [place] 1.025 (1.008-1.030) Urine Protein 30 H (NEGATIVE) mg/dL Urine Glucose (UA) Negative (NEGATIVE) mg/dL Urine Ketones Trace H (NEGATIVE) mg/dL Urine Occult Blood Trace-intact H (NEGATIVE) Urine Nitrite Negative (NEGATIVE) Urine Bilirubin Negative (NEGATIVE) Urine Urobilinogen 0.2 (0.2-1.0) EU/dL Ur Leukocyte Esterase Negative (NEGATIVE) Urine RBC 0-5 (0-5) Urine WBC 0-5 (0-5) Ur Epithelial Cells Rare Amorphous Sediment Not seen Urine Bacteria Rare Urine Mucus Few Urine Opiates Screen (NEGATIVE) Ur Oxycodone Screen (NEGATIVE) Urine Methadone Screen (NEGATIVE) Ur Propoxyphene Screen (NEGATIVE) Ur Barbiturates Screen (NEGATIVE) Ur Tricyclics Screen (NEGATIVE) Ur Phencyclidine Scrn (NEGATIVE) Ur Amphetamine Screen (NEGATIVE) U Methamphetamines Scrn (NEGATIVE) Urine MDMA Screen (NEGATIVE) U Benzodiazepines Scrn (NEGATIVE) U Cocaine Metab Screen (NEGATIVE) U Marijuana (THC) Screen (NEGATIVE) 03/09/20 Range/Units 16:55 WBC (4.5-11.0) K/uL RBC (3.30-5.50) M/uL Hgb (12.0-15.0) g/dL Hct (36.0-48.0) % MCV (80-98) fL MCH (27-31) pg MCHC (32-36) % Plt Count (150-400) K/uL Neut % (Auto) (36-66) % Lymph % (Auto) (24-44) % [place] % (Auto) (2-6) % Eos % (Auto) (2-4) % Baso % (Auto) (0-1) % Sodium (140-148) mmol/L Potassium (3.6-5.2) mmol/L Chloride (100-108) mmol/L Carbon Dioxide (21-32) mmol/L Anion Gap (5.0-14.0) mmol/L BUN (7-18) mg/dL Creatinine (0.6-1.0) mg/dL Est Cr Clr Drug Dosing mL/min Estimated GFR (MDRD) (>60) Glucose (74-106) mg/dL Calcium (8.5-10.1) mg/dL Total Bilirubin (0.2-1.0) mg/dL AST (15-37) U/L ALT (12-78) U/L Alkaline Phosphatase (46-116) U/L Total Protein (6.4-8.2) g/dL Albumin (3.4-5.0) g/dL Globulin (2.3-3.5) g/dL Albumin/Globulin Ratio (1.2-2.2) Urine Color (YELLOW) Urine Appearance (CLEAR) Urine pH (5.0-8.0) Ur Specific [place] (1.008-1.030) Urine Protein (NEGATIVE) mg/dL Urine Glucose (UA) (NEGATIVE) mg/dL Urine Ketones (NEGATIVE) mg/dL Urine Occult Blood (NEGATIVE) Urine Nitrite (NEGATIVE) Urine Bilirubin (NEGATIVE) Urine Urobilinogen (0.2-1.0) EU/dL Ur Leukocyte Esterase (NEGATIVE) Urine RBC (0-5) Urine WBC (0-5) Ur Epithelial Cells Amorphous Sediment Urine Bacteria Urine Mucus Urine Opiates Screen Negative (NEGATIVE) Ur Oxycodone Screen Negative (NEGATIVE) Urine Methadone Screen Negative (NEGATIVE) Ur Propoxyphene Screen Negative (NEGATIVE) Ur Barbiturates Screen Negative (NEGATIVE) Ur Tricyclics Screen Negative (NEGATIVE) Ur Phencyclidine Scrn Negative (NEGATIVE) Ur Amphetamine Screen Negative (NEGATIVE) U Methamphetamines Scrn Negative (NEGATIVE) Urine MDMA Screen Negative (NEGATIVE) U Benzodiazepines Scrn Presumptive positive H (NEGATIVE) U Cocaine Metab Screen Negative (NEGATIVE) U Marijuana (THC) Screen Presumptive positive H (NEGATIVE) Meds: Medications Generic Name Dose Route Start Last Admin Trade Name Karl PRN Reason Stop Dose Admin Sodium Chloride 1,000 mls @ 999 mls/hr 03/09/20 16:45 03/09/20 16:58 Normal Saline IV 999 mls/hr ASDIRECTED DIANNE Administration Sodium Chloride 1,000 mls @ 999 mls/hr 03/09/20 17:30 03/09/20 19:03 Normal Saline IV 999 mls/hr ASDIRECTED DIANNE Administration Discontinued Medications Generic Name Dose Route Start Last Admin Trade Name Karl PRN Reason Stop Dose Admin Lorazepam 0.5 mg 03/09/20 16:38 03/09/20 16:55 Ativan IVPUSH 03/09/20 16:39 0.5 mg ONETIME ONE Administration Lorazepam 0.5 mg 03/09/20 17:36 03/09/20 19:03 Ativan PO 03/09/20 17:37 0.5 mg ONETIME ONE Administration Ondansetron HCl 4 mg 03/09/20 16:38 03/09/20 16:55 Zofran IVPUSH 03/09/20 16:39 4 mg ONETIME ONE Administration Departure - Departure Time of Disposition: 20:10 Condition: Good - Discharge Information *PRESCRIPTION DRUG MONITORING PROGRAM REVIEWED*: Not Applicable *COPY OF PRESCRIPTION DRUG MONITORING REPORT IN PATIENT KATHRIN: Not Applicable Sepsis Event Note (ED) - Focused Exam Vital Signs: Vital Signs Temp Pulse Resp BP Pulse Ox 03/09/20 16:54 92 112/67 100 03/09/20 16:37 36.6 C 93 15 122/77 100 03/09/20 16:26 36.6 C 93 15 122/77 100
[2020-03-09] MEDS ORDERED: Ondansetron 4 MG/2 ML SDV IVPUSH ONE (16:38)
[2020-03-09] MEDS ORDERED: LORazepam 2 MG/ML SDV IVPUSH ONE (16:38)
[2020-03-09] MEDS ORDERED: Sodium Chloride 0.9% 1,000 ML IV SCH ×2 (16:45→17:30)
[2020-03-09 16:55] VITALS: BP 112/67; PULSE 92
[2020-03-09] MEDS ORDERED: LORazepam 0.5 MG Tab PO ONE (17:36)
== END 2020-03-09 20:26 | disposition home or self-care (01) ==
LOC: JP.ED 16:08
DX: F41.9 Anxiety disorder, unspecified (principal); F45.8 Other somatoform disorders; J45.909 Unspecified asthma, uncomplicated; F41.0 Panic disorder [episodic paroxysmal anxiety]; Z88.1 Allergy status to other antibiotic agents; Z79.899 Other long term (current) drug therapy
CPT/HCPCS: 36415; 80053; 80305; 81001; 85025; 96361; 96374; 96375; 99284; A9270; J2060; J2405; J7030

== ENCOUNTER 2020-06-24 22:03 | Emergency (ER) | payer MEDICAID ==
[2020-06-24 22:24] VITALS: BP 129/69; PULSE 96
[2020-06-24] MEDS ORDERED: Albuterol/Ipratropium 3.0-0.5 MG/3 ML Neb Soln NEB ONE (22:29)
--- NOTE | 2020-06-24 22:30 | EDM.PDOC ---
ED HPI GENERAL MEDICAL PROBLEM - General Chief Complaint: Respiratory Problem Stated Complaint: S.O.B. Time Seen by Provider: 06/24/20 22:23 Source of Information: Reports: Patient History Limitations: Reports: No Limitations - History of Present Illness INITIAL COMMENTS - FREE TEXT/NARRATIVE: Liliana is a 25-year-old female presenting to the ED for evaluation of persistent cough and shortness of breath. Patient has a history for asthma, allergic rhinitis, postnasal drip, anxiety, and hyperventilation syndrome. She is currently out of her Xanax and cannot refill until tomorrow morning. She states when she starts to have the postnasal drip this causes her to cough and makes her short of breath. She has been using her inhaler without any significant benefit. She denies any fever or chills. The cough has been mostly clear phlegm. She does have a copious amount of clear rhinorrhea. I do not believe she takes anything for allergies. 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 CHIEF MEDIA OFFICER History: BOO-04/08/2017 Musculoskeletal History: Reports: Fracture Other Musculoskeletal History: fractured shoulder x's 3 Psychiatric History: Reports: Anxiety, Panic Attack Hematologic History: Reports: Other (See Below) Other Hematologic History: low WBC with unknown cause Dermatologic History: Reports: Other (See Below) Other Dermatologic History: PUPP - Infectious Disease History Infectious Disease History: Reports: Chicken Pox - Past Surgical History HEENT Surgical History: Reports: None Respiratory Surgical History: Reports: None Musculoskeletal Surgical History: Reports: None Social & Family History - Family History Family Medical History: No Pertinent Family History - Caffeine Use Caffeine Use: Reports: Soda Other Caffeine Use: 1 cup daily ED ROS GENERAL - Review of Systems Review Of Systems: See Below Constitutional: Reports: No Symptoms HEENT: Reports: Rhinitis (Copious amount of clear nasal discharge), Other ("Tickle in the throat" from postnasal drip) Respiratory: Reports: Shortness of Breath, Cough Cardiovascular: Reports: No Symptoms Endocrine: Reports: No Symptoms GI/Abdominal: Reports: No Symptoms : Reports: No Symptoms Musculoskeletal: Reports: No Symptoms Skin: Reports: No Symptoms Neurological: Reports: No Symptoms Psychiatric: Reports: Anxiety (Patient is currently out of her Xanax and cannot refill until morning.) Hematologic/Lymphatic: Reports: No Symptoms ED EXAM, GENERAL - Physical Exam Exam: See Below Exam Limited By: No Limitations General Appearance: Alert, Anxious, Mild Distress Eye Exam: Bilateral Eye: EOMI, PERRL Nose: Nasal Swelling, Nasal Drainage, Clear Rhinorrhea Throat/Mouth: Normal Inspection, Normal Lips, Normal Teeth, Normal Gums, Normal Oropharynx, Normal Voice, No Airway Compromise Head: Atraumatic, Normocephalic Neck: Normal Inspection, Supple, Non-Tender, Full Range of Motion Respiratory/Chest: No Respiratory Distress, Lungs Clear, Normal Breath Sounds, No Accessory Muscle Use, Chest Non-Tender Cardiovascular: Normal Peripheral Pulses, Regular Rate, Rhythm, No Edema, No Gallop, No JVD, No Murmur, No Rub Peripheral Pulses: 2+: Radial (L), Radial (R) GI/Abdominal: Normal Bowel Sounds, Soft, Non-Tender, No Organomegaly, No Di stention, No Abnormal Bruit, No Mass (Female) Exam: Deferred Rectal (Female) Exam: Deferred Back Exam: Normal Inspection, Full Range of Motion, NT Extremities: Normal Inspection, Normal Range of Motion, Non-Tender, Normal Capillary Refill, No Pedal Edema Neurological: Alert, Oriented, CN II-XII Intact, Normal Cognition, Normal Gait, No Motor/Sensory Deficits Psychiatric: Normal Affect, Anxious Skin Exam: Warm, Dry, Intact, Normal Color, No Rash Lymphatic: No Adenopathy Course - Vital Signs Last Recorded V/S: Last Vital Signs Temp 35.7 C L 06/24/20 22:28 Pulse 96 06/24/20 22:28 Resp 24 H 06/24/20 22:28 BP 129/69 06/24/20 22:28 Pulse Ox 97 06/24/20 22:28 - Orders/Labs/Meds Orders: Active Orders 24 hr Category Date Time Status RT Aerosol Therapy [RC] ASDIRECTED Care 06/24/20 22:30 Active Chest 2V [CR] Stat Exams 06/24/20 22:29 Taken ALPRAZolam [Xanax] Med 06/24/20 23:41 Once 1 mg PO ONETIME ONE Medication Orders Alprazolam (Xanax) 1 mg PO ONETIME ONE Stop: 06/24/20 23:42 Labs: Laboratory Tests 06/24/20 06/24/20 Range/Units 22:49 22:49 WBC 13.2 H (4.5-11.0) K/uL RBC 4.66 (3.30-5.50) M/uL Hgb 12.7 (12.0-15.0) g/dL Hct 39.1 (36.0-48.0) % MCV 84 (80-98) fL MCH 27 (27-31) pg MCHC 33 (32-36) % Plt Count 376 (150-400) K/uL Neut % (Auto) 51 (36-66) % Lymph % (Auto) 29 (24-44) % [place] % (Auto) 7 H (2-6) % Eos % (Auto) 13 H (2-4) % Baso % (Auto) 1 (0-1) % C-Reactive Protein 0.22 (0.0-0.3) mg/dL Meds: Medications Generic Name Dose Route Start Last Admin Trade Name Freq PRN Reason Stop Dose Admin Alprazolam 1 mg 06/24/20 23:41 Xanax PO 06/24/20 23:42 ONETIME ONE Discontinued Medications Generic Name Dose Route Start Last Admin Trade Name Freq PRN Reason Stop Dose Admin Albuterol/Ipratropium 3 ml 06/24/20 22:29 06/24/20 22:42 Duoneb 3.0-0.5 Mg/3 Ml NEB 06/24/20 22:30 3 ml ONETIME ONE Administration - Radiology Interpretation Free Text/Narrative:: Chest 2 view x-ray: Normal cardiac silhouette, no evidence for acute infiltrates, normal lung contour, no osseous abnormalities. - Re-Assessments/Exams Free Text/Narrative Re-Assessment/Exam: 06/24/20 23:42 Liliana is a 25-year-old female presenting to the ED with a history significant for anxiety and asthma. She ran out of her Xanax and likely is presenting because she cannot refill her Xanax until tomorrow morning. She states that she has been short of breath and has had a cough secondary to rhinorrhea. She has been using her inhaler without benefit. Upon arrival to the ED, she was noted to have significant clear rhinorrhea with postnasal drip causing her to gag and cough. Her lung exam was unremarkable for any wheezes, rhonchi, or rales. The patient was given a DuoNeb without any significant change. A chest x-ray was performed and is unremarkable for any acute findings. Her lab work shows a mild leukocytosis at 13.2 which is predominantly eosinophils likely due to her allergic rhinitis. Her C-reactive protein is unremarkable. My plan is to put her on cetirizine for her allergic rhinitis and the patient was given a dose of her Xanax for her anxiety and hyperventilation. At this time she is suitable for discharge home in satisfactory condition. She should follow-up with a primary care provider concerning her Xanax refill. Indications return to the ED were discussed and the patient was discharged after all questions were answered. Departure - Departure Time of Disposition: 23:44 Disposition: Home, Self-Care 01 Condition: Good Clinical Impression: Anxiety Allergic rhinitis Qualifiers: Allergic rhinitis trigger: unspecified Allergic rhinitis seasonality: seasonal Qualified Code(s): J30.2 - Other seasonal allergic rhinitis - Discharge Information *PRESCRIPTION DRUG MONITORING PROGRAM REVIEWED*: Yes *COPY OF PRESCRIPTION DRUG MONITORING REPORT IN PATIENT KATHRIN: No Instructions: Managing Anxiety, Adult, Allergic Rhinitis, Adult, [id number] Referrals: Gayla Valladares CNM [Primary Care Provider] - Forms: ED Department Discharge Care Plan Goals: I recommend that she start Zyrtec which is available [id number] for your allergic rhinitis, runny nose and nasal discharge. This can be picked up at [facility] or any pharmacy. We will give you the first dose here in the ED. the work-up today failed to demonstrate anything suggestive of either a bronchitis, asthma attack, or pneumonia. I believe the cough is predominantly coming from your postnasal drip which should improve with the cetirizine. We will give you this one-time dose of Xanax, however, this cannot be a regular practice for the ED and will likely not be repeated in the future. Please closely manage her Xanax and follow-up with your primary care provider in a timely fashion. This is to prevent overuse of this medication which is highly addictive. Sepsis Event Note (ED) - Focused Exam Vital Signs: Vital Signs Temp Pulse Resp BP Pulse Ox 06/24/20 22:28 35.7 C L 96 24 H 129/69 97 06/24/20 22:22 35.7 C L 96 18 129/69 97 - Problem List & Annotations (1) Anxiety SNOMED Code(s): 33358187 Code(s): F41.9 - ANXIETY DISORDER, UNSPECIFIED Status: Chronic Priority: Medium Current Visit: Yes (2) Allergic rhinitis SNOMED Code(s): 65146461 Code(s): J30.9 - ALLERGIC RHINITIS, UNSPECIFIED Status: Acute Priority: Medium Current Visit: Yes Qualifiers: Allergic rhinitis trigger: unspecified Allergic rhinitis seasonality: seasonal Qualified Code(s): J30.2 - Other seasonal allergic rhinitis - Problem List Review Problem List Initiated/Reviewed/Updated: Yes - My Orders Last 24 Hours: My Active Orders 06/24/20 22:29 Chest 2V [CR] Stat 06/24/20 22:30 RT Aerosol Therapy [RC] ASDIRECTED 06/24/20 23:41 ALPRAZolam [Xanax] 1 mg PO ONETIME ONE - Assessment/Plan Last 24 Hours: My Active Orders 06/24/20 22:29 Chest 2V [CR] Stat 06/24/20 22:30 RT Aerosol Therapy [RC] ASDIRECTED 06/24/20 23:41 ALPRAZolam [Xanax] 1 mg PO ONETIME ONE
[2020-06-24] MEDS ORDERED: ALPRAZolam 0.25 MG Tab PO ONE (23:41)
[2020-06-24] MEDS ORDERED: Cetirizine 10 MG Tab PO ONE (23:45)
--- NOTE | 2020-06-25 09:13 | CR ---
CHEST: 2 view CLINICAL HISTORY:Cough and dyspnea COMPARISON:None FINDINGS: The heart size, pulmonary vascularity and hilar structures are normal. No infiltrate effusion or pneumothorax is seen. IMPRESSION: No acute cardiopulmonary process.
== END 2020-06-24 23:53 | disposition home or self-care (01) ==
LOC: JP.ED 22:03
DX: J30.2 Other seasonal allergic rhinitis (principal); F41.9 Anxiety disorder, unspecified; Z88.1 Allergy status to other antibiotic agents; Z79.899 Other long term (current) drug therapy
CPT/HCPCS: 36415; 71046; 85025; 86140; 94640; 99285; A9270; J7620-GY

== ENCOUNTER 2021-01-07 18:19 | Emergency (ER) | payer MEDICAID ==
[2021-01-07 18:32] VITALS: BP 122/78; PULSE 110
[2021-01-07] MEDS ORDERED: LORazepam 1 MG Tab PO ONE (18:46)
--- NOTE | 2021-01-07 18:49 | EDM.PDOC ---
ED HPI GENERAL MEDICAL PROBLEM - General Chief Complaint: General Stated Complaint: SOB, PANICK ATTACK Time Seen by Provider: 01/07/21 18:40 Source of Information: Reports: Patient, RN Notes Reviewed History Limitations: Reports: No Limitations - History of Present Illness INITIAL COMMENTS - FREE TEXT/NARRATIVE: 26-year-old female presents emergency department today concerned about anxiety. She has known history of generalized anxiety disorder recently started Wellbutrin she is taken 7 doses of that medication today she felt very panicky short of breath palpitations feeling of impending doom. She did try Xanax 3 doses last dose was at 4:00 with minimal effect. 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 TEAM LEAD History: BOO-04/08/2017 Musculoskeletal History: Reports: Fracture Other Musculoskeletal History: fractured shoulder x's 3 Psychiatric History: Reports: Anxiety, Panic Attack Hematologic History: Reports: Other (See Below) Other Hematologic History: low WBC with unknown cause Dermatologic History: Reports: Other (See Below) Other Dermatologic History: PUPP - Infectious Disease History Infectious Disease History: Reports: Chicken Pox - Past Surgical History HEENT Surgical History: Reports: None Respiratory Surgical History: Reports: None Musculoskeletal Surgical History: Reports: None Social & Family History - Family History Family Medical History: No Pertinent Family History - Tobacco Use Tobacco Use Status *Q: Never Tobacco User - Caffeine Use Caffeine Use: Reports: Tea Other Caffeine Use: 1 cup daily - Recreational Drug Use Recreational Drug Use: No ED ROS GENERAL - Review of Systems Review Of Systems: See Below Constitutional: Reports: No Symptoms Respiratory: Reports: Shortness of Breath Cardiovascular: Reports: Palpitations Psychiatric: Reports: Anxiety ED EXAM, GENERAL - Physical Exam Exam: See Below Exam Limited By: No Limitations General Appearance: Alert, Anxious Respiratory/Chest: No Respiratory Distress, Lungs Clear, Normal Breath Sounds, No Accessory Muscle Use, Chest Non-Tender Cardiovascular: Regular Rate, Rhythm, No Murmur Course - Vital Signs Last Recorded V/S: Last Vital Signs Temp 97.1 F 01/07/21 18:31 Pulse 110 H 01/07/21 18:31 Resp 16 01/07/21 18:31 BP 122/78 01/07/21 18:31 Pulse Ox 96 01/07/21 18:31 - Orders/Labs/Meds Labs: Laboratory Tests 01/07/21 01/07/21 01/07/21 Range/Units 18:58 18:58 18:58 WBC 7.8 (4.5-11.0) K/uL RBC 4.57 (3.30-5.50) M/uL Hgb 12.8 (12.0-15.0) g/dL Hct 39.1 (36.0-48.0) % MCV 86 (80-98) fL MCH 28 (27-31) pg MCHC 33 (32-36) % Plt Count 356 (150-400) K/uL Neut % (Auto) 57.7 (36-66) % Lymph % (Auto) 25.6 (24-44) % Lee % (Auto) 6.9 H (2-6) % Eos % (Auto) 9.4 H (2-4) % Baso % (Auto) 0.4 (0-1) % Sodium 142 (140-148) mmol/L Potassium 4.1 (3.6-5.2) mmol/L Chloride 104 (100-108) mmol/L Carbon Dioxide 25 (21-32) mmol/L Anion Gap 12.7 (5.0-14.0) mmol/L BUN 9 (7-18) mg/dL Creatinine 0.8 (0.6-1.0) mg/dL Est Cr Clr Drug Dosing 85.76 mL/min Estimated GFR (MDRD) > 60 (>60) Glucose 93 (74-106) mg/dL Calcium 8.8 (8.5-10.1) mg/dL Troponin I < 0.017 (0.000-0.056) ng/mL Meds: Medications Discontinued Medications Generic Name Dose Route Start Last Admin Trade Name Freq PRN Reason Stop Dose Admin Lorazepam 1 mg 01/07/21 18:46 01/07/21 18:51 Lorazepam 1 Mg Tab PO 01/07/21 18:47 1 mg ONETIME ONE Administration Departure - Departure Time of Disposition: 19:31 Disposition: Home, Self-Care 01 Condition: Fair Clinical Impression: Panic attack - Discharge Information Instructions: Panic Attack, [id number] Referrals: Gayla Valladares CNM [Primary Care Provider] - Forms: ED Department Discharge Additional Instructions: Recommend stopping Wellbutrin or decreasing the dose by half, please contact your primary care tomorrow for further evaluation, call or return to the emergency department worsening of symptoms Sepsis Event Note (ED) - Evaluation Sepsis Screening Result: No Definite Risk - Focused Exam Vital Signs: Vital Signs Temp Pulse Resp BP Pulse Ox 01/07/21 18:31 97.1 F 110 H 16 122/78 96 - Assessment/Plan Plan: Assessment Acuity = acute Site and laterality = panic attack Etiology = generalized anxiety disorder Manifestations = none Location of injury = Home Lab values = CBC, BMP, troponin all within normal limits Plan Good improvement 1 mg Ativan recommend decrease dose or stop the Wellbutrin recommend contacting primary care tomorrow for further evaluation This note was dictated using [employer] voice recognition software please call with any questions on syntax or grammar.
== END 2021-01-07 19:55 | disposition home or self-care (01) ==
LOC: JP.ED 18:19
DX: F41.0 Panic disorder [episodic paroxysmal anxiety] (principal); J45.909 Unspecified asthma, uncomplicated; Z88.0 Allergy status to penicillin; Z79.899 Other long term (current) drug therapy
CPT/HCPCS: 36415; 80048; 84484; 85025; 99283; A9270

== ENCOUNTER 2021-04-25 20:07 | Emergency (ER) | payer MEDICAID ==
[2021-04-25 20:17] VITALS: BP 132/81; PULSE 94
--- NOTE | 2021-04-25 21:08 | EDM.PDOC ---
ED HPI GENERAL MEDICAL PROBLEM - General Chief Complaint: Respiratory Problem Stated Complaint: SOB, SORE THROAT Time Seen by Provider: 04/25/21 20:32 Source of Information: Reports: Patient History Limitations: Reports: No Limitations - History of Present Illness INITIAL COMMENTS - FREE TEXT/NARRATIVE: Patient presents to the ER due to concern about her asthma and out of her rescue inhaler. Patient gives history of shortness of breath that is increasing over the last several nights. She states that she has had cold symptoms for approximately 1 week in duration that do include sore throat sensation positive hot sensation at times but she does not really state that she is feverish and she has not taken her temperature. Patient states that she does have an asthma history and has been using her albuterol inhaler about 5 times a day for the last 3 days she states that her rescue inhaler use is approximately twice a day on normal circumstances. She also has an Advair inhaler which she is reports she does not get using consistently she did restart use about a week ago when she started having cold symptoms sore throat she has missed several doses throughout the week but is attempting to become to be more consistent with usage. Patient also states that she had prednisone in the cabinet there 10 mg tablets and she started taking this Monday she took 1 tablet on Monday she took a tablet twice a day on Monday and 1 tablet today. Patient denies any other associated symptoms of concern and she has no known Covid exposures reported PMH--asthma, JESSE Meds--albuterol inhaler, Advair, singulair, flonase Allergy--Amox Tob/Drug--denies EtOH--occassionally Patient denies known COVID infection nor has she received her COVID immunization Onset: Gradual Duration: Week(s): (1) - Related Data Allergies Allergy/AdvReac Type Severity Reaction Status Date / Time amoxicillin Allergy Hives Verified 04/25/21 20:19 Home Meds: Home Meds Albuterol [Ventolin HFA] 2 puff INH BID 08/18/16 [History] Montelukast Sodium [Singulair] 1 tab PO BEDTIME 11/27/18 [History] ALPRAZolam [Alprazolam] 1 mg PO ASDIRECTED 05/26/19 [History] Fluticasone Propion/Salmeterol [Advair 250-50 Diskus] 1 each IH BID 04/25/21 [History] Past Medical History HEENT History: Reports: Allergic Rhinitis 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: Reports: 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: BOO-04/08/2017 Musculoskeletal History: Reports: Fracture Other Musculoskeletal History: fractured shoulder x's 3 Psychiatric History: Reports: Anxiety, Panic Attack Hematologic History: Reports: Other (See Below) Other Hematologic History: low WBC with unknown cause Dermatologic History: Reports: Other (See Below) Other Dermatologic History: PUPP - Infectious Disease History Infectious Disease History: Reports: Chicken Pox - Past Surgical History HEENT Surgical History: Reports: None Respiratory Surgical History: Reports: None Musculoskeletal Surgical History: Reports: None Social & Family History - Family History Family Medical History: No Pertinent Family History - Tobacco Use Tobacco Use Status *Q: Never Tobacco User - Caffeine Use Caffeine Use: Reports: None Other Caffeine Use: 1 cup daily - Recreational Drug Use Recreational Drug Use: No ED ROS GENERAL - Review of Systems Review Of Systems: Comprehensive ROS is negative, except as noted in HPI. Constitutional: Reports: Fever HEENT: Reports: Rhinitis, Throat Pain Respiratory: Reports: Shortness of Breath, Wheezing, Cough Cardiovascular: Reports: No Symptoms GI/Abdominal: Reports: No Symptoms ED EXAM, GENERAL - Physical Exam Exam: See Below Exam Limited By: No Limitations General Appearance: Alert, WD/WN, No Apparent Distress Eye Exam: Bilateral Eye: EOMI, Normal Inspection, PERRL Ears: Normal External Exam, Hearing Grossly Normal Nose: Normal Inspection Throat/Mouth: Normal Inspection, Normal Oropharynx, Normal Voice, No Airway Compromise Head: Atraumatic, Normocephalic Neck: Normal Inspection, Supple, Non-Tender, Full Range of Motion Respiratory/Chest: No Respiratory Distress, Lungs Clear, Normal Breath Sounds. No: Wheezing (no wheeze at rest or to forced expiration) Cardiovascular: Normal Peripheral Pulses, Regular Rate, Rhythm, No Edema, No Murmur Peripheral Pulses: 2+: Radial (L), Radial (R) GI/Abdominal: Normal Bowel Sounds, Soft, Non-Tender (Female) Exam: Deferred Rectal (Female) Exam: Deferred Back Exam: Normal Inspection, Full Range of Motion Extremities: Normal Inspection, Normal Range of Motion, No Pedal Edema, Normal Capillary Refill Neurological: Alert, Oriented, Normal Cognition, No Motor/Sensory Deficits Psychiatric: Normal Affect, Normal Mood Skin Exam: Warm, Dry, Intact, Normal Color Course - Vital Signs Text/Narrative:: 2115--negative Covid and influenza testing today in the emergency room. Will provide patient with albuterol inhaler as she states she does not have 1 available tonight for use. As discussed we will also provide her with a prednisone burst of appropriate dosing. I did recommend that she use Advair on a regular basis that it is not meant to be a rescue medication. She verbalized understanding agreement recommended that she follow-up with her primary care provider should she have any further concerns return to the emergency room for any worsening symptoms this time she is ready for discharge Last Recorded V/S: Last Vital Signs Temp 98.2 F 04/25/21 20:20 Pulse 94 04/25/21 20:20 Resp 14 04/25/21 20:20 BP 132/81 04/25/21 20:20 Pulse Ox 95 04/25/21 20:20 - Orders/Labs/Meds Orders: Active Orders 24 hr Category Date Time Status Isolation [COMM] Routine Oth 04/25/21 20:46 Ordered Labs: Laboratory Tests 04/25/21 Range/Units 20:47 SARS CoV-2 RNA Rapid ROCIO Negative Departure - Departure Time of Disposition: 21:18 Disposition: Home, Self-Care 01 Clinical Impression: Medication refill Asthma Qualifiers: Asthma severity: mild Asthma persistence: unspecified Asthma complication type: uncomplicated Qualified Code(s): J45.909 - Unspecified asthma, uncomplicated - Discharge Information *PRESCRIPTION DRUG MONITORING PROGRAM REVIEWED*: Not Applicable *COPY OF PRESCRIPTION DRUG MONITORING REPORT IN PATIENT KATHRIN: Not Applicable Instructions: Asthma Attack Prevention, Adult, Asthma, Adult Referrals: Gayla Valladares CNM [Primary Care Provider] - Forms: ED Department Discharge Additional Instructions: As discussed it is recommended that you use your Advair twice a day on a daily basis as this is a preventative measure not a rescue measure. I have provided you with a prescription for albuterol rescue inhaler today in the emergency room to be obtained through [employer]. Further refills should be obtained through your primary care provider. It is recommended that you ensure that you have adequate albuterol inhalers on hand at all times. Your Covid and influenza testing is negative today in the emergency room. Given your chronic medical history of asthma and the Covid pandemic it is strongly recommended that you obtain Covid immunization at this time You have any further concerns regarding your asthma and ongoing care follow-up with your primary care provider. If you have worsening shortness of breath cough or wheezing suggestive of acute asthma attack then please return to the emergency room for further evaluation Sepsis Event Note (ED) - Evaluation Sepsis Screening Result: No Definite Risk - Focused Exam Vital Signs: Vital Signs Temp Pulse Resp BP Pulse Ox 04/25/21 20:20 98.2 F 94 14 132/81 95 04/25/21 20:16 98.2 F 94 14 132/81 95 - My Orders Last 24 Hours: My Active Orders 04/25/21 20:46 Isolation [COMM] Routine - Assessment/Plan Last 24 Hours: My Active Orders 04/25/21 20:46 Isolation [COMM] Routine
== END 2021-04-25 21:28 | disposition home or self-care (01) ==
LOC: JP.ED 20:07
DX: J45.909 Unspecified asthma, uncomplicated (principal); Z76.0 Encounter for issue of repeat prescription; Z20.822 Contact with and (suspected) exposure to COVID-19; Z88.0 Allergy status to penicillin
CPT/HCPCS: 87804; 87804-59; 99283; U0002

== ENCOUNTER 2021-07-03 14:37 | Emergency (ER) | payer MEDICAID ==
[2021-07-03 15:12] VITALS: BP 123/75; PULSE 100
--- NOTE | 2021-07-03 16:24 | EDM.PDOC ---
ED HPI GENERAL MEDICAL PROBLEM - General Chief Complaint: ENT Problem Stated Complaint: LEFT EAR / THROAT PAIN Time Seen by Provider: 07/03/21 16:11 Source of Information: Reports: Patient, RN Notes Reviewed History Limitations: Reports: No Limitations - History of Present Illness INITIAL COMMENTS - FREE TEXT/NARRATIVE: 26-year-old female presents emergency department today with complaint of ear pain left ear she states is been ongoing for about 3 days she is not had any fever she has had sore throat no particular nasal discharge no sputum production Left Ear Pain Score (Numeric/FACES): 3 - Related Data Allergies Allergy/AdvReac Type Severity Reaction Status Date / Time amoxicillin Allergy Hives Verified 07/03/21 15:12 Home Meds: Home Meds Albuterol [Ventolin HFA] 2 puff INH BID 08/18/16 [History] Montelukast Sodium [Singulair] 1 tab PO BEDTIME 11/27/18 [History] ALPRAZolam [Alprazolam] 1 mg PO ASDIRECTED 05/26/19 [History] Fluticasone Propion/Salmeterol [Advair 250-50 Diskus] 1 each IH BID 04/25/21 [History] Past Medical History HEENT History: Reports: Allergic Rhinitis 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: Reports: 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 Musculoskeletal History: Reports: Fracture Other Musculoskeletal History: fractured shoulder x's 3 Psychiatric History: Reports: Anxiety, Panic Attack Hematologic History: Reports: Other (See Below) Other Hematologic History: low WBC with unknown cause Dermatologic History: Reports: Other (See Below) Other Dermatologic History: PUPP - Infectious Disease History Infectious Disease History: Reports: Chicken Pox - Past Surgical History HEENT Surgical History: Reports: None Respiratory Surgical History: Reports: None Musculoskeletal Surgical History: Reports: None Social & Family History - Family History Family Medical History: No Pertinent Family History - Tobacco Use Tobacco Use Status *Q: Never Tobacco User - Caffeine Use Caffeine Use: Reports: None Other Caffeine Use: 1 cup daily - Recreational Drug Use Recreational Drug Use: No ED ROS ENT - Review of Systems Review Of Systems: See Below Constitutional: Reports: No Symptoms HEENT: Reports: Ear Pain, Throat Pain, Throat Swelling. Denies: Ear Discharge Respiratory: Reports: No Symptoms Cardiovascular: Reports: No Symptoms ED EXAM, ENT - Physical Exam Exam: See Below Exam Limited By: No Limitations General Appearance: Alert, WD/WN, No Apparent Distress Ears: TM Bulging, TM Dullness, TM Erythema Nose: Normal Inspection, Normal Mucousa, No Blood Mouth/Throat: Normal Inspection, Normal Gums, Normal Lips, Normal Oropharynx, Normal Teeth Head: Atraumatic, Normocephalic Neck: Normal Inspection, Supple, Non-Tender, Full Range of Motion Respiratory/Chest: No Respiratory Distress, Lungs Clear, Normal Breath Sounds, No Accessory Muscle Use, Chest Non-Tender Cardiovascular: Regular Rate, Rhythm, No Murmur Course - Vital Signs Last Recorded V/S: Last Vital Signs Temp 98.0 F 07/03/21 15:11 Pulse 100 07/03/21 15:11 Resp 18 07/03/21 15:11 BP 123/75 07/03/21 15:11 Pulse Ox 95 07/03/21 15:11 - Orders/Labs/Meds Labs: Laboratory Tests 07/03/21 Range/Units 15:16 SARS CoV-2 RNA Rapid ROCIO Negative Departure - Departure Time of Disposition: 16:23 Disposition: Home, Self-Care 01 Condition: Fair Clinical Impression: Otitis media Qualifiers: Otitis media type: suppurative Chronicity: acute Laterality: left Recurrence: non-recurrent Spontaneous tympanic membrane rupture: without spontaneous rupture Qualified Code(s): H66.002 - Acute suppurative otitis media without spontaneous rupture of ear drum, left ear - Discharge Information Instructions: Otitis Media, Adult, [id number] Referrals: Mary Jane Miller CNM [Primary Care Provider] - Additional Instructions: Take full course of antibiotics, please followup with your primary care pr ovider in 3-5 days if not better, please call return to the emergency department with worsening of symptoms. Sepsis Event Note (ED) - Evaluation Sepsis Screening Result: No Definite Risk - Focused Exam Vital Signs: Vital Signs Temp Pulse Resp BP Pulse Ox 07/03/21 15:11 98.0 F 100 18 123/75 95 - Assessment/Plan Plan: Assessment Acuity = acute Site and laterality = left otitis media Etiology = probable bacterial cause Manifestations = otalgia Location of injury = Home Lab values = Covid 19 - Plan She does have a penicillin allergy amoxicillin allergy elected to treat with azithromycin 5-day course follow-up primary care in 5 to 7 days if not better This note was dictated using [employer] voice recognition software please call with any questions on syntax or grammar.
== END 2021-07-03 16:32 | disposition home or self-care (01) ==
LOC: JP.ED 14:37
DX: H66.002 Acute suppurative otitis media without spontaneous rupture of ear drum, left ear (principal); Z88.0 Allergy status to penicillin; Z20.822 Contact with and (suspected) exposure to COVID-19
CPT/HCPCS: 99283; U0002

== ENCOUNTER 2021-09-02 15:13 | Emergency (ER) | payer OTHER, MEDICAID ==
[2021-09-02 15:35] VITALS: BP 135/81; PULSE 104
[2021-09-02] MEDS ORDERED: Ondansetron 4 MG Tab.DIS PO ONE (15:48)
[2021-09-02] MEDS ORDERED: Ibuprofen 400 MG Tab PO ONE (16:44)
[2021-09-02] MEDS ORDERED: Lidocaine 2% Viscous Solution 15 ML UD PO ONE (16:55)
== END 2021-09-02 17:21 ==
LOC: JP.ED 15:13
DX: S06.0X0A Concussion without loss of consciousness, initial encounter (principal); S09.93XA Unspecified injury of face, initial encounter; F13.230 Sedative, hypnotic or anxiolytic dependence with withdrawal, uncomplicated; R11.2 Nausea with vomiting, unspecified; M54.2 Cervicalgia; R56.9 Unspecified convulsions; Z88.0 Allergy status to penicillin; W18.39XA Other fall on same level, initial encounter
CPT/HCPCS: 70450; 72125; 99284-25; 99285; A9270-GY; Q0162

== ENCOUNTER 2022-07-27 17:22 | Emergency (ER) | payer MEDICAID ==
[2022-07-27 17:37] VITALS: BP 143/70; PULSE 138
[2022-07-27 18:14] LABS: CORONAVIRUS COVID-19 NAA NEGATIVE (NEGATIVE)
== END 2022-07-27 18:39 | disposition home or self-care (01) ==
LOC: JP.ED 17:22
DX: J10.1 Influenza due to other identified influenza virus with other respiratory manifestations (principal); J45.21 Mild intermittent asthma with (acute) exacerbation; Z88.0 Allergy status to penicillin; Z79.899 Other long term (current) drug therapy; Z20.822 Contact with and (suspected) exposure to COVID-19
CPT/HCPCS: 0241U; 99284

== ENCOUNTER 2023-01-07 11:59 | Emergency (ER) | payer MEDICAID ==
[2023-01-07 13:24] VITALS: BP 128/71; PULSE 87
== END 2023-01-07 14:30 | disposition home or self-care (01) ==
LOC: JP.ED 11:59
DX: F41.9 Anxiety disorder, unspecified (principal); F13.230 Sedative, hypnotic or anxiolytic dependence with withdrawal, uncomplicated; J45.909 Unspecified asthma, uncomplicated; Z88.0 Allergy status to penicillin
CPT/HCPCS: 99281

== ENCOUNTER 2023-11-13 09:53 | Emergency (ER) | payer MEDICAID ==
[2023-11-13 10:36] VITALS: BP 126/71; PULSE 98
[2023-11-13 11:41] LABS: BASOPHILS PERCENT AUTO 0.3 % (0.1-1.3); EOSINOPHILS ABSOLUTE AUTO 0.04 K/uL (0.00-0.40); EOSINOPHILS PERCENT AUTO 0.6 % (0.0-5.4); HEMOGLOBIN 15.8 g/dL (11.2-15.5); IMMATURE GRAN PERCENT AUTO 0.1 % (0.0-0.7); LYMPHOCYTES ABSOLUTE AUTO 0.42 K/uL (0.8-3.3); LYMPHOCYTES PERCENT AUTO 6.1 % (11.4-47.7); MEAN CORPUSCULAR HEMOGLOBIN 29.6 pg (31.6-35.5); MEAN CORPUSCULAR HGB CONC 34.3 g/dL (31.6-35.5); MEAN CORPUSCULAR VOLUME 86.3 fL (81.4-99.0); MONOCYTES ABSOLUTE AUTO 0.44 K/uL (0.20-0.90); MONOCYTES PERCENT AUTO 6.4 % (3.3-12.6); NEUTROPHILS ABSOLUTE AUTO 5.99 K/uL (1.0-7.6); NEUTROPHILS PERCENT AUTO 86.5 % (40.0-78.1); PLATELET COUNT,PLT 342 K/uL (130-375); RED BLOOD CELL COUNT 5.33 M/uL (3.77-5.24); WHITE BLOOD CELL COUNT,WBC 6.9 K/uL (3.2-11.0)
[2023-11-13 11:43] LABS: BASOPHILS ABSOLUTE AUTO 0.02 K/uL (0.00-0.10); IMMATURE GRAN ABSOLUTE AUTO 0.01 K/uL (0.00-0.23)
[2023-11-13] MEDS: Lactated Ringers 1,000 ML IV SCH (11:45)
[2023-11-13] MEDS: Ketorolac 30 MG/ML SDV IVPUSH ONE (11:46)
[2023-11-13] MEDS: Sodium Chloride 0.9% 10 ML Syringe FLUSH PRN (11:49)
[2023-11-13] MEDS: Ondansetron 4 MG/2 ML SDV IVPUSH ONE (11:49)
[2023-11-13 11:54] LABS: APPEARANCE,URINE SLIGHTLY CLOUDY (CLEAR); BILIRUBIN,URINE NEGATIVE (NEGATIVE); COLOR,URINE YELLOW (YELLOW); GLUCOSE,URINE NEGATIVE (NEGATIVE); KETONES,URINE 15 mg/dL (NEGATIVE); LEUKOCYTE ESTERASE,URINE TRACE (NEGATIVE); NITRITE,URINE NEGATIVE (NEGATIVE); OCCULT BLOOD,URINE NEGATIVE (NEGATIVE); PROTEIN,URINE NEGATIVE (NEGATIVE); UROBILINOGEN,URINE 0.2 EU/dL (0.2-1.0)
[2023-11-13 11:56] LABS: AMORPHOUS SEDIMENT,URINE NOT SEEN; BACTERIA,URINE NOT SEEN; EPITHELIAL CELLS,URINE FEW; MUCUS,URINE MODERATE; RBC,URINE 0-5 (0-5); WBC,URINE 0-5 (0-5)
[2023-11-13 12:04] LABS: A/G RATIO 0.9 (1.2-2.2); ALANINE AMINOTRANSFERASE,ALT 22 U/L (12-78); ALBUMIN 3.9 g/dL (3.4-5.0); ALKALINE PHOSPHATASE 71 U/L (46-116); ASPARTATE AMNIOTRANSFERASE,AST 14 U/L (15-37); BILIRUBIN TOTAL 0.7 mg/dL (0.2-1.0); BLOOD UREA NITROGEN,BUN 18 mg/dL (7-18); CALCIUM 8.9 mg/dL (8.5-10.1); CARBON DIOXIDE,CO2 26 mmol/L (21-32); CHLORIDE,CL 101 mmol/L (100-108); EST CRCL DRUG DOSING (CG) 67.43 mL/min; ESTIMATED GFR 80 mL/min (>60); GLUCOSE RANDOM 116 mg/dL (74-106); POTASSIUM,K 3.7 mmol/L (3.6-5.2); PROTEIN TOTAL,TP 8.2 g/dL (6.4-8.2); SODIUM,NA 138 mmol/L (140-148)
[2023-11-13 12:11] LABS: ANION GAP 14.7 mmol/L (5.0-14.0)
[2023-11-13 12:18] LABS: CORONAVIRUS COVID-19 NAA NEGATIVE (NEGATIVE); INFLUENZA A NAA NEGATIVE (NEGATIVE); INFLUENZA B NAA NEGATIVE (NEGATIVE); RESPIRATORY SYNCYTIAL VIR NAA NEGATIVE (NEGATIVE)
== END 2023-11-13 13:33 | disposition home or self-care (01) ==
LOC: JP.ED 09:53
DX: K52.9 Noninfective gastroenteritis and colitis, unspecified (principal); J45.909 Unspecified asthma, uncomplicated; Z88.0 Allergy status to penicillin; Z79.51 Long term (current) use of inhaled steroids; Z79.899 Other long term (current) drug therapy
CPT/HCPCS: 0241U; 36415; 80053; 81001; 83605; 83690; 84703; 85025; 96361; 96374; 96375; 99284; J1885; J2405; J3490; J7120

== ENCOUNTER 2024-06-02 17:51 | Emergency (ER) | payer MEDICAID | END 2024-06-02 18:18 | disposition left against medical advice (07) | LOC: JP.ED 17:51 | DX: Z53.21 Procedure and treatment not carried out due to patient leaving prior to being seen by health care provider (principal) ==